=== PATIENT | female | born 1985 | race Caucasian/White ===

== ENCOUNTER 2016-07-05 18:08 | Inpatient (IN) | payer MEDICARE ==
[2016-07-05] MEDS ORDERED: Sodium Chloride 0.9% 1000 ML 1,000 ML ONE (18:42)
[2016-07-05] MEDS ORDERED: TYLENOL EXTRA STRENGTH 500 MG ONE (18:42)
[2016-07-05] MEDS ORDERED: Sodium Chloride 0.9% 1000 ML 1,000 ML IV SCH ×2 (18:45→22:45)
[2016-07-05] MEDS ORDERED: TYLENOL EXTRA STRENGTH 500 MG PO PRN (18:46)
[2016-07-05 18:50] LABS: Bacteria FEW /HPF (NEGATIVE); COMPLETE URINE MICROSCOPIC? YES; Collection Type CLEAN CATCH; Epithelial Cells FEW /HPF (FEW); Mean Cell Volume 72.3 fl (78-100); Mean Corpuscular Hemoglobin 24.8 pg (26-32); Mean Platelet Volume 11.1 fl (6-9.5); Mucus MODERATE /HPF (NEGATIVE); Platelet Count 433 K/mm3 (150-450); Red Blood Count 5.09 M/mm3 (4.1-5.4); Red Cell Distribution Width 13.5 % (11.5-14.0); White Blood Count 18.9 K/mm3 (4.0-10.5)
[2016-07-05 19:14] LABS: ANISOCYTOSIS 1+; ATYPICAL LYMPHS 3 %; Eosinophil 2 % (0.00-3.0); Microcytosis 1+; Platelet Estimate NORMAL (NORMAL); Total Cells Counted 100
[2016-07-05 19:17] LABS: ALBUMIN 2.5 g/dL (3.4-5.0); ANION GAP 16.6 MEQ/L (5-15); BILIRUBIN,TOTAL 0.2 mg/dL (0.2-1.0); Carbon Dioxide 21.4 mEq/L (21-32); Potassium 4.2 mEq/L (3.5-5.1); Total Protein 6.8 gm/dL (6.4-8.2)
--- NOTE | 2016-07-05 19:42 | ERPHSYRPT ---
- History of Present Illness Time Seen by Provider: 07/05/16 19:33 Source: patient Exam Limitations: no limitations Patient Subjective Stated Complaint: PT REPORTS NONPRODUCTIVE COUGH BEGINNING 2 DAYS AGO-PROGRESSIVELY [id number] OVER BODY ACHES-DENIES N/V/D Triage Nursing Assessment: PT PALE WARM ET DRY-HARSH DRY COUGH NOTED THROUGHOUT TRIAGE-LUNGS CLEAR-RESP NONLABORED Physician History: Pt with dry cough along with SOB, weakness, myalgia, fever and chills for 2 days. States worse yesterday with symptoms. Denies any N/V/D, abdominal pain, or urinary symptoms. Timing/Duration: day(s) (2) Activities at Onset: none Severity of Dyspnea-Max: moderate Severity of Dyspnea-Current: moderate Possible Cause: occasional episodes Modifying Factors: Improves With: coughing (worsen), rest (improve) Associated Symptoms: cough, edema, fever, loss of appetite, lightheadedness, dizziness, heaviness, heart racing, lightheadedness, leg swelling, No chest pain /discomfort, No calf pain International travel in last 2 weeks: No Allergies/Adverse Reactions: latex Allergy (Intermediate, Verified 07/05/16 18:20) Iodinated Contrast Media - Oral and [Iodinated Contrast Media - IV Dye] Allergy (Verified 07/05/16 18:20) morphine Allergy (Verified 07/05/16 18:20) Home Medications: Levetiracetam [Keppra] 750 mg PO BID 02/15/14 [History] Losartan Potassium 100 mg PO DAILY 02/15/14 [History] Docusate Sodium 100 mg [Colace 100 MG] 100 mg PO BID 08/30/15 [History] Fluticasone Propionate [Flonase NASAL] 16 gm NS DAILY 08/30/15 [History] Insulin Aspart [Novolog Flexpen] 10 unit SQ TIDAC 08/30/15 [History] Prochlorperazine Maleate 5 mg* [Compazine 5 MG] 5 mg PO Q6HPRN PRN 08/30/15 [ History] Sumatriptan Succinate 25 mg [Imitrex 25 MG] 25 mg SQ Q8H PRN PRN 08/30/15 [ History] Topiramate [Topamax] 50 mg PO BID 08/30/15 [History] Aspirin 81 gm Chew [Baby Aspirin 81 mg Chew] 81 mg PO DAILY 03/17/16 [ History] Atorvastatin Calcium 40 mg PO DAILY 03/17/16 [History] Hydrochlorothiazide 25 mg [hydroDIURIL 25 MG] 25 mg PO DAILY 03/17/16 [ History] Insulin Glargine [Lantus Insulin] 20 units SQ BID 03/17/16 [History] Metoprolol Tartrate 25 mg [Lopressor 25MG Tab] 25 mg PO DAILY 03/17/16 [ History] Mirtazapine 30 mg [Remeron 30 mg] 30 mg PO DAILY 03/17/16 [History] Olanzapine [Zyprexa] 5 mg PO DAILY PRN 03/17/16 [History] PANTOPRAZOLE 40 mg Tablet [Protonix 40MG Tablet] 40 mg PO DAILY 03/17/16 [ History] Warfarin Sodium 5 mg [Coumadin 5 MG] 5 mg PO UD 07/05/16 [History] Hx Tetanus, Diphtheria Vaccination/Date Given: Yes Hx Influenza Vaccination/Date Given: Yes Hx Pneumococcal Vaccination/Date Given: No Immunizations Up to Date: Yes - Review of Systems Constitutional: Fever, Chills, Malaise, Weakness Eyes: No Symptoms Ears, Nose, & Throat: No Symptoms, Nose Congestion, Throat Pain, Painful Swallowing Respiratory: Cough, Dyspnea Cardiac: Edema, Palpitations, No Chest Pain, No Syncope Abdominal/Gastrointestinal: No Abdominal Pain, No Nausea, No Vomiting, No Diarrhea Genitourinary Symptoms: No Dysuria Musculoskeletal: Back Pain, Neck Pain, Myalgias Skin: No Rash Neurological: No Dizziness, No Focal Weakness, No Sensory Changes Psychological: No Symptoms Endocrine: No Symptoms Hematologic/Lymphatic: Easy Bruising All Other Systems: Reviewed and Negative - Past Medical History Pertinent Past Medical History: Yes Neurological History: Stroke (Jan 2016) ENT History: No Pertinent History Cardiac History: High Cholesterol, Hypertension Respiratory History: CHF, Pulmonary Embolism Endocrine Medical History: Diabetes Type I Musculoskeletal History: No Pertinent History GI Medical History: No Pertinent History History: No Pertinent History Psycho-Social History: Anxiety, Depression Female Reproductive Disorders: No Pertinent History Other Medical History: lupus-clotting disorder - Past Surgical History Past Surgical History: Yes Neuro Surgical History: No Pertinent History Cardiac: No Pertinent History Respiratory: No Pertinent History Gastrointestinal: No Pertinent History Genitourinary: No Pertinent History Musculoskeletal: No Pertinent History Female Surgical History: Tubal Ligation Other Surgical History: esophagus stretched. ALL INFORMATION OBTAINED FORM ER REPORT - Social History Smoking Status: Never smoker Exposure to second hand smoke: No Drug Use: none Patient Lives Alone: No - Female History Hx Last Menstrual Period: CURRENT - Nursing Vital Signs Nursing Vital Signs: Initial Vital Signs Temperature 100.9 F Temperature Source Oral Pulse Rate 100 Respiratory Rate 16 Blood Pressure [] 170/99 Pain Intensity 2 - Physical Exam General Appearance: mild distress Eye Exam: PERRL/EOMI Ears, Nose, Throat Exam: pharyngeal erythema Neck Exam: normal inspection, supple Respiratory Exam: diminished breath sounds, rhonchi Cardiovascular/Chest Exam: normal heart sounds, tachycardia Abdominal/Gastrointestinal Exam: soft, No tenderness, No distention, No mass Extremity Exam: pedal edema Peripheral Pulses Exam: dorsalis-pedis (R): 2+, dorsalis-pedis (L): 2+ Neurologic Exam: alert, oriented x 3, cooperative, linoleum printer II-XII nml as tested, sensation nml, No motor deficits Skin Exam: normal color, warm, No dry Lymphatic Exam: No adenopathy SpO2 Interpretation: normal SpO2: 95 Oxygen Delivery: Room Air - Course Nursing assessment & vital signs reviewed: Yes EKG Interpreted by Me: RATE (101), Sinus Tach, NORMAL AXIS, NORMAL QRS, Non- specific ST Changes - Radiology Exams Chest X-ray Interpretation: Teleradiologist Report, Infiltrates (RML) Ordered Tests: Active Orders 24 hr Category Date Time Status Accucheck STAT Care 07/05/16 18:39 Active EKG-ER Only STAT Care 07/05/16 20:10 Active IV Insertion STAT Care 07/05/16 18:39 Active Pulse Oximetry (ED) STAT Care 07/05/16 18:39 Active CHEST 2 VIEWS (PA AND LAT) Stat Exams 07/05/16 18:40 Completed BLOOD CULTURE Stat Lab 07/05/16 20:22 Received BNP [NT PRO BNP] Stat Lab 07/05/16 18:30 Completed CBC W DIFF Stat Lab 07/05/16 18:30 Completed CMP Stat Lab 07/05/16 18:30 Completed HCG QUALITATIVE,SERUM Stat Lab 07/05/16 18:30 Completed Lactic Acid Urgent Lab 07/05/16 18:39 Completed Lactic Acid Urgent Lab 07/05/16 19:49 Completed Manual Differential NC Stat Lab 07/05/16 18:30 Completed PT INR [PROTIME WITH INR] Stat Lab 07/05/16 16:30 Completed STREP SCREEN-BETA A Stat Lab 07/05/16 20:23 Completed UA W/ MICROSCOPIC Stat Lab 07/05/16 18:30 Completed Medication Summary Generic Name Dose Route Start Last Admin Trade Name Jason PRN Reason Stop Dose Admin Acetaminophen 1,000 mg 07/05/16 18:46 07/05/16 18:47 Tylenol Extra Strength 500 Mg PO 08/04/16 18:45 1,000 mg Q4H PRN PRN Administration HEADACHE Sodium Chloride 1,000 mls @ 100 mls/hr 07/05/16 18:45 07/05/16 18:47 Sodium Chloride 0.9% 1000 Ml IV 08/04/16 18:44 100 mls/hr .Q10H NEIL Administration Azithromycin 250 mls @ 125 mls/hr 07/05/16 21:14 07/05/16 21:56 Zithromax 500 Mg/ 250 Ml Nacl Premix IV 07/05/16 23:13 125 mls/hr STAT ONE Administration Discontinued Medications Generic Name Dose Route Start Last Admin Trade Name Jason PRN Reason Stop Dose Admin Acetaminophen Confirm 07/05/16 18:42 Tylenol Extra Strength 500 Mg Administered 07/05/16 18:43 Dose 1,000 mg .ROUTE .STK-MED ONE Guaifenesin/Codeine Phosphate 10 ml 07/05/16 20:01 07/05/16 20:09 Robitussin Ac Syrup Unit Dose Cup PO 07/05/16 20:02 10 ml STAT ONE Administration Guaifenesin/Codeine Phosphate Confirm 07/05/16 20:08 Robitussin Ac Syrup Unit Dose Cup Administered 07/05/16 20:09 Dose 10 ml .ROUTE .STK-MED ONE Sodium Chloride Confirm 07/05/16 18:42 Sodium Chloride 0.9% 1000 Ml Administered 07/05/16 18:43 Dose 1,000 mls @ ud .ROUTE .STK-MED ONE Ceftriaxone Sodium/Dextrose 50 mls @ 100 mls/hr 07/05/16 21:14 07/05/16 21:20 Rocephin 1 Gm-D5w 50 Ml Bag IV 07/05/16 21:43 100 mls/hr STAT ONE Administration Azithromycin Confirm 07/05/16 21:16 Zithromax 500 Mg/ 250 Ml Nacl Premix Administered 07/05/16 21:17 Dose 250 mls @ ud IV .STK-MED ONE Ceftriaxone Sodium/Dextrose Confirm 07/05/16 21:16 Rocephin 1 Gm-D5w 50 Ml Bag Administered 07/05/16 21:17 Dose 50 mls @ ud IV .STK-MED ONE Ibuprofen 600 mg 07/05/16 19:50 07/05/16 20:04 Motrin 600 Mg PO 07/05/16 19:51 600 mg STAT STA Administration Ibuprofen Confirm 07/05/16 20:03 Motrin 600 Mg Administered 07/05/16 20:04 Dose 600 mg .ROUTE .STK-MED ONE Lab/Rad Data: Laboratory Result Diagrams 07/05/16 18:30 07/05/16 18:30 Laboratory Results 07/05/16 07/05/16 07/05/16 Range/Units 20:23 19:49 18:45 WBC (4.0-10.5) K/mm3 RBC (4.1-5.4) M/mm3 Hgb (12.0-16.0) gm/dl Hct (35-47) % MCV (78-100) fl MCH (26-32) pg MCHC (32-36) g/dl RDW (11.5-14.0) % Plt Count (150-450) K/mm3 MPV (6-9.5) fl Segmented Neutrophils (36.0-66.0) % Lymphocytes (Manual) (24-44) % Monocytes (Manual) (0.0-12.0) % Eosinophils (Manual) (0.00-3.0) % Differential Comment Atypical Lymphocytes % Platelet Estimate (NORMAL) Anisocytosis Microcytosis INR (0.8-3.0) Sodium (136-145) mEq/L Potassium (3.5-5.1) mEq/L Chloride (98-107) mEq/L Carbon Dioxide (21-32) mEq/L Anion Gap (5-15) MEQ/L BUN (9-20) mg/dL Creatinine (0.55-1.30) mg/dl Estimated GFR ML/MIN Glucose (70-110) MG/DL Lactic Acid 0.6 (0.4-2.0) Calcium (8.5-10.1) mg/dL Total Bilirubin (0.2-1.0) mg/dL AST (15-37) U/L ALT (12-78) U/L Alkaline Phosphatase (46-116) U/L NT-Pro-B Natriuret Pep (0-125) pg/ml Serum Total Protein (6.4-8.2) gm/dL Albumin (3.4-5.0) g/dL Serum , Qual (Negative) Ur Collection Type Urine Color (YELLOW) Urine Appearance (CLEAR) Urine pH (5-6) Ur Specific [place] (1.005-1.025) Urine Protein (Negative) Urine Glucose (UA) (NEGATIVE) mg/dL Urine Ketones (NEGATIVE) Urine Nitrite (NEGATIVE) Urine Bilirubin (NEGATIVE) Urine Urobilinogen (0-1) mg/dL Urine WBC (Auto) (NEGATIVE) Urine RBC (Auto) (0-5) Vamshi/ul Urine Microscopic RBC (0-2) /HPF Ur Epithelial Cells (FEW) /HPF Urine Bacteria (NEGATIVE) /HPF Urine Mucus (NEGATIVE) /HPF Streptococcus Screen POSITIVE (Negative) Resp Infection Panel POSITIVE (Negative) Specimen Received 07/05/16 07/05/16 07/05/16 Range/Units 18:39 18:30 18:30 WBC (4.0-10.5) K/mm3 RBC (4.1-5.4) M/mm3 Hgb (12.0-16.0) gm/dl Hct (35-47) % MCV (78-100) fl MCH (26-32) pg MCHC (32-36) g/dl RDW (11.5-14.0) % Plt Count (150-450) K/mm3 MPV (6-9.5) fl Segmented Neutrophils (36.0-66.0) % Lymphocytes (Manual) (24-44) % Monocytes (Manual) (0.0-12.0) % Eosinophils (Manual) (0.00-3.0) % Differential Comment Atypical Lymphocytes % Platelet Estimate (NORMAL) Anisocytosis Microcytosis INR (0.8-3.0) Sodium (136-145) mEq/L Potassium (3.5-5.1) mEq/L Chloride (98-107) mEq/L Carbon Dioxide (21-32) mEq/L Anion Gap (5-15) MEQ/L BUN (9-20) mg/dL Creatinine (0.55-1.30) mg/dl Estimated GFR ML/MIN Glucose (70-110) MG/DL Lactic Acid 1.1 (0.4-2.0) Calcium (8.5-10.1) mg/dL Total Bilirubin (0.2-1.0) mg/dL AST (15-37) U/L ALT (12-78) U/L Alkaline Phosphatase (46-116) U/L NT-Pro-B Natriuret Pep 1808 H (0-125) pg/ml Serum Total Protein (6.4-8.2) gm/dL Albumin (3.4-5.0) g/dL Serum , Qual (Negative) Ur Collection Type CLEAN CATCH Urine Color YELLOW (YELLOW) Urine Appearance CLEAR (CLEAR) Urine pH 6.0 (5-6) Ur Specific [place] 1.020 (1.005-1.025) Urine Protein >=300 (Negative) Urine Glucose (UA) 500 (NEGATIVE) mg/dL Urine Ketones NEGATIVE (NEGATIVE) Urine Nitrite NEGATIVE (NEGATIVE) Urine Bilirubin NEGATIVE (NEGATIVE) Urine Urobilinogen 0.2 (0-1) mg/dL Urine WBC (Auto) NEGATIVE (NEGATIVE) Urine RBC (Auto) MODERATE (0-5) Vamshi/ul Urine Microscopic RBC 10-15 (0-2) /HPF Ur Epithelial Cells FEW (FEW) /HPF Urine Bacteria FEW (NEGATIVE) /HPF Urine Mucus MODERATE (NEGATIVE) /HPF Streptococcus Screen (Negative) Resp Infection Panel (Negative) Specimen Received 07/05/16:1830 07/05/16 07/05/16 07/05/16 Range/Units 18:30 18:30 18:30 WBC 18.9 H (4.0-10.5) K/mm3 RBC 5.09 (4.1-5.4) M/mm3 Hgb 12.6 (12.0-16.0) gm/dl Hct 36.8 (35-47) % MCV 72.3 L (78-100) fl MCH 24.8 L (26-32) pg MCHC 34.2 (32-36) g/dl RDW 13.5 (11.5-14.0) % Plt Count 433 (150-450) K/mm3 MPV 11.1 H (6-9.5) fl Segmented Neutrophils 80 H (36.0-66.0) % Lymphocytes (Manual) 8 L (24-44) % Monocytes (Manual) 7 (0.0-12.0) % Eosinophils (Manual) 2 (0.00-3.0) % Differential Comment ABNORMAL Atypical Lymphocytes 3 % Platelet Estimate NORMAL (NORMAL) Anisocytosis 1+ Microcytosis 1+ INR (0.8-3.0) Sodium 135 L (136-145) mEq/L Potassium 4.2 (3.5-5.1) mEq/L Chloride 101 (98-107) mEq/L Carbon Dioxide 21.4 (21-32) mEq/L Anion Gap 16.6 H (5-15) MEQ/L BUN 25 H (9-20) mg/dL Creatinine 1.52 H (0.55-1.30) mg/dl Estimated GFR 42 ML/MIN Glucose 156 H (70-110) MG/DL Lactic Acid (0.4-2.0) Calcium 8.4 L (8.5-10.1) mg/dL Total Bilirubin 0.2 (0.2-1.0) mg/dL AST 20 (15-37) U/L ALT 10 L (12-78) U/L Alkaline Phosphatase 109 (46-116) U/L NT-Pro-B Natriuret Pep (0-125) pg/ml Serum Total Protein 6.8 (6.4-8.2) gm/dL Albumin 2.5 L (3.4-5.0) g/dL Serum , Qual NEGATIVE (Negative) Ur Collection Type Urine Color (YELLOW) Urine Appearance (CLEAR) Urine pH (5-6) Ur Specific [place] (1.005-1.025) Urine Protein (Negative) Urine Glucose (UA) (NEGATIVE) mg/dL Urine Ketones (NEGATIVE) Urine Nitrite (NEGATIVE) Urine Bilirubin (NEGATIVE) Urine Urobilinogen (0-1) mg/dL Urine WBC (Auto) (NEGATIVE) Urine RBC (Auto) (0-5) Vamshi/ul Urine Microscopic RBC (0-2) /HPF Ur Epithelial Cells (FEW) /HPF Urine Bacteria (NEGATIVE) /HPF Urine Mucus (NEGATIVE) /HPF Streptococcus Screen (Negative) Resp Infection Panel (Negative) Specimen Received 07/05/16 Range/Units 16:30 WBC (4.0-10.5) K/mm3 RBC (4.1-5.4) M/mm3 Hgb (12.0-16.0) gm/dl Hct (35-47) % MCV (78-100) fl MCH (26-32) pg MCHC (32-36) g/dl RDW (11.5-14.0) % Plt Count (150-450) K/mm3 MPV (6-9.5) fl Segmented Neutrophils (36.0-66.0) % Lymphocytes (Manual) (24-44) % Monocytes (Manual) (0.0-12.0) % Eosinophils (Manual) (0.00-3.0) % Differential Comment Atypical Lymphocytes % Platelet Estimate (NORMAL) Anisocytosis Microcytosis INR 2.29 (0.8-3.0) Sodium (136-145) mEq/L Potassium (3.5-5.1) mEq/L Chloride (98-107) mEq/L Carbon Dioxide (21-32) mEq/L Anion Gap (5-15) MEQ/L BUN (9-20) mg/dL Creatinine (0.55-1.30) mg/dl Estimated GFR ML/MIN Glucose (70-110) MG/DL Lactic Acid (0.4-2.0) Calcium (8.5-10.1) mg/dL Total Bilirubin (0.2-1.0) mg/dL AST (15-37) U/L ALT (12-78) U/L Alkaline Phosphatase (46-116) U/L NT-Pro-B Natriuret Pep (0-125) pg/ml Serum Total Protein (6.4-8.2) gm/dL Albumin (3.4-5.0) g/dL Serum , Qual (Negative) Ur Collection Type Urine Color (YELLOW) Urine Appearance (CLEAR) Urine pH (5-6) Ur Specific [place] (1.005-1.025) Urine Protein (Negative) Urine Glucose (UA) (NEGATIVE) mg/dL Urine Ketones (NEGATIVE) Urine Nitrite (NEGATIVE) Urine Bilirubin (NEGATIVE) Urine Urobilinogen (0-1) mg/dL Urine WBC (Auto) (NEGATIVE) Urine RBC (Auto) (0-5) Vamshi/ul Urine Microscopic RBC (0-2) /HPF Ur Epithelial Cells (FEW) /HPF Urine Bacteria (NEGATIVE) /HPF Urine Mucus (NEGATIVE) /HPF Streptococcus Screen (Negative) Resp Infection Panel (Negative) Specimen Received - Progress Progress: improved Air Movement: fair Progress Note: 07/05/16 21:04 patient was given IV fluids along with Robitussin-AC. Patient was also given Tylenol and Motrin for fever which did seem to improve her symptoms. We will also give her IV antibiotics for her pneumonia. Dr. Payne was notified and agreed that patient should be admitted. Further care will be per Dr. Payne. Blood Culture(s) Obtained: Yes Antibiotics given: Yes Discussed with Dr.: Payne Counseled pt/family regarding: lab results, diagnosis, rad results - Departure Time of Disposition: 21:07 Departure Disposition: In-patient Admission Clinical Impression: Pneumonia, Strep pharyngitis Condition: Stable Critical Care Time: No Referrals: GREGORY PAYNE [Primary Care Provider] -
[2016-07-05] MEDS ORDERED: MOTRIN 600 MG PO STA (19:50)
[2016-07-05] MEDS ORDERED: Robitussin AC Syrup Unit Dose Cup PO ONE (20:01)
[2016-07-05] MEDS ORDERED: MOTRIN 600 MG ONE (20:03)
[2016-07-05 20:08] LABS: INR 2.29 (0.8-3.0)
[2016-07-05] MEDS ORDERED: Robitussin AC Syrup Unit Dose Cup ONE (20:08)
--- NOTE | 2016-07-05 20:48 | XRAY ---
Indication: Cough. Comparison: None PA/lateral chest demonstrates right middle lobe infiltrate/atelectasis. Left lung clear. Heart is not enlarged. Bony thorax intact. Impression: Right middle lobe infiltrate/atelectasis. Correlate clinically. Comment: Preliminary electronic report was generated for the ordering clinician at 2015 hrs. on July 05, 2016.
[2016-07-05] MEDS ORDERED: ROCEPHIN 1 Gm-D5w 50 ml Bag** 50 ML IV ONE ×2 (21:14→21:16)
[2016-07-05] MEDS ORDERED: Zithromax 500 MG/ 250 ML NaCl Premix 250 ML IV ONE ×2 (21:14→21:16)
[2016-07-05] MEDS ORDERED: TYLENOL 325 MG PO PRN (22:48)
[2016-07-05] MEDS ORDERED: Phenergan 25 MG INJ IV PRN (22:54)
[2016-07-05] MEDS ORDERED: Robitussin 100 MG/5 ML PO PRN (22:55)
[2016-07-05] MEDS ORDERED: Topamax 25 MG PO SCH (23:45)
[2016-07-05] MEDS ORDERED: Compazine 5 MG PO PRN (23:50)
[2016-07-05] MEDS ORDERED: Topamax 100 MG ONE (23:58)
[2016-07-06] MEDS: Colace 100 MG PO SCH ×3 (00:36→22:14)
[2016-07-06] MEDS: KEPPRA 500 MG PO SCH ×3 (00:36→22:13)
[2016-07-06] MEDS: NORCO 5/325 MG PO PRN ×3 (00:39→19:49)
[2016-07-06] MEDS: LIORESAL 10 MG PO SCH ×4 (00:39→22:14)
[2016-07-06] MEDS: Lantus Insulin SQ SCH ×3 (00:39→23:00)
[2016-07-06 05:37] LABS: Mean Cell Volume 73.9 fl (78-100); Mean Platelet Volume 10.7 fl (6-9.5); Platelet Count 378 K/mm3 (150-450); Red Blood Count 4.64 M/mm3 (4.1-5.4); Red Cell Distribution Width 13.6 % (11.5-14.0)
[2016-07-06 05:39] LABS: Mean Corpuscular Hemoglobin 24.3 pg (26-32)
[2016-07-06 05:49] LABS: INR 2.28 (0.8-3.0); PROTIME 24.9 SECONDS (9.95-12.35)
[2016-07-06 05:57] LABS: ANION GAP 11.4 MEQ/L (5-15); Carbon Dioxide 26.2 mEq/L (21-32); Potassium 3.5 mEq/L (3.5-5.1)
[2016-07-06] MEDS: DUONEB 0.5-3 MG/3 ml Neb IH PRN (06:07)
[2016-07-06 07:02] LABS: Platelet Estimate NORMAL (NORMAL); Total Cells Counted 100
[2016-07-06] MEDS ORDERED: REMERON 30 MG PO SCH (10:00)
[2016-07-06] MEDS ORDERED: LIPITOR 40MG PO SCH (10:00)
[2016-07-06] MEDS ORDERED: Lopressor 25MG Tab PO SCH (10:00)
[2016-07-06] MEDS ORDERED: BABY ASPIRIN 81 MG CHEW PO SCH (10:00)
[2016-07-06] MEDS: NovoLOG Insulin SQ SCH ×3 (10:09→16:52)
[2016-07-06] MEDS: Cozaar 50 MG PO SCH (10:10)
[2016-07-06] MEDS: Flonase NASAL NS SCH (10:11)
[2016-07-06] MEDS: ECOTRIN 81 MG PO SCH (10:11)
[2016-07-06] MEDS: hydroDIURIL 25 MG PO SCH (10:12)
[2016-07-06] MEDS: Protonix 40MG Tablet PO SCH (10:14)
[2016-07-06] MEDS: Topamax 100 MG PO SCH ×2 (10:14→22:13)
[2016-07-06] MEDS: zyPREXA 5MG TABLET PO SCH (10:16)
[2016-07-06] MEDS: ZOCOR 20MG PO SCH (10:16)
[2016-07-06] MEDS ORDERED: PHARMACY DOSING REQUEST MC ONE (10:52)
[2016-07-06] MEDS ORDERED: NON-FORMULARY ITEM (Insulin Aspart [Novolog Flexpen] 10 UNIT) SQ SCH (11:30)
[2016-07-06] MEDS: Zosyn 3.375GM/100 Ml D5W 100 ML IV SCH ×3 (11:32→23:41)
[2016-07-06] MEDS: Coumadin 2 MG PO SCH (18:18)
[2016-07-06] MEDS ORDERED: Zithromax 500 MG/ 250 ML NaCl Premix 250 ML IV SCH (22:00)
[2016-07-06] MEDS ORDERED: ROCEPHIN 1 Gm-D5w 50 ml Bag** 50 ML IV SCH (22:00)
[2016-07-07] MEDS ORDERED: Apresoline 25 MG TABLET PO ONE (04:48)
[2016-07-07 05:49] LABS: Mean Cell Volume 75.1 fl (78-100); Mean Corpuscular Hemoglobin 24.5 pg (26-32); Platelet Count 395 K/mm3 (150-450); Red Blood Count 4.57 M/mm3 (4.1-5.4); Red Cell Distribution Width 13.9 % (11.5-14.0); White Blood Count 12.4 K/mm3 (4.0-10.5)
[2016-07-07 06:15] LABS: ANION GAP 13.9 MEQ/L (5-15); Carbon Dioxide 24.6 mEq/L (21-32); Potassium 4.1 mEq/L (3.5-5.1)
[2016-07-07 06:17] LABS: INR 2.27 (0.8-3.0); PROTIME 24.8 SECONDS (9.95-12.35)
[2016-07-07] MEDS: Zosyn 3.375GM/100 Ml D5W 100 ML IV SCH (06:20)
[2016-07-07] MEDS: DUONEB 0.5-3 MG/3 ml Neb IH PRN (07:09)
[2016-07-07 07:10] LABS: BAND 2 % (0.0-2.0); Eosinophil 4 % (0.00-3.0); Platelet Estimate NORMAL (NORMAL); Total Cells Counted 100
--- NOTE | 2016-07-07 07:59 | HP ---
HISTORY OF PRESENT ILLNESS: This is a 31 year-old lady who presented to the emergency department yesterday. She states that two days ago she started having problems breathing. She reports her son and has had bronchitis and she has been exposed to them. She had a cough and nasal congestion. She had a low grade fever two days ago and then a fever yesterday that was up to 102.6F when she was in the emergency department. She reports she just did not seem to be getting much better. She has a complex medical history with multiple medical problems despite her young age. REVIEW OF SYSTEMS: She denies any chest pain. No abdominal pain. No diarrhea. No rashes. She had some lower extremity edema. She reports some dry heaves with coughing otherwise no nausea or vomiting. She reports her cough has been nonproductive and has not seemed to get much better since being here in the hospital. PAST MEDICAL HISTORY: Congestive heart failure which she sees a doctor at [facility]. However she cannot remember the name. The next appointment is 08/29/2016. History of chronic pain and she has an upcoming appointment with pain management. History of stroke and seizure disorder which she sees Dr. Ramiro Smith at [facility]. History of lupus anticoagulant, diabetes type 1 diagnosed when she was 8 years old that she sees Dr. Freeman at for. Migraine, fibromyalgia, history of tachycardia, neuropathy. PAST SURGICAL HISTORY: She had her esophagus dilated in 2009. Tubal ligation in 2005. MEDICATIONS: Aspirin 81 mg p.o. daily, Atorvastatin 40 mg daily, Baclofen 10 mg t.i.d., docusate 100 mg b.i.d., fluticasone 16 gm two sprays in each nostril daily, hydrochlorothiazide 25 mg p.o. daily, hydrocodone with acetaminophen 5/325 mg 1 tablet p.o. every four hours as needed, NovoLog 10 units subcutaneously t.i.d., Lantus 20 units subcutaneously t.i.d., Lantus 20 units subcutaneously b.i.d., Keppra 750 mg p.o. t.i.d., losartan 100 mg p.o. daily, metoprolol tartrate 25 mg p.o. daily, Remeron 30 mg p.o. daily, Zyprexa 5 mg p.o. daily, pantoprazole 40 mg p.o. daily, Compazine 5 mg p.o. every six hours as needed for nausea, Sumatriptan 25 mg p.o. every 8 hours as needed, Topamax 50 mg p.o. b.i.d., warfarin 5 mg on Thursday, Thursday and Thursday and 4 mg all other days. ALLERGIES: LATEX, IODINE, IODINATED CONTRAST BOTH IV AND ORAL, MORPHINE. SOCIAL HISTORY: She does not smoke. No alcohol. No illicit drugs. She is and lives at home with her and one child. FAMILY HISTORY: Her mother has hypertension. Her father has diabetes. PHYSICAL EXAMINATION: VITAL SIGNS: Temperature current 98.2F, temperature max 102.5F, heart rate 80 to 119 currently 80, respiratory rate 16 to 24 currently 20, blood pressure 140 to 188 over 80 to 112 currently 140/80. Oxygen saturation 93 to 95% on room air. GENERAL: The patient is a pleasant lady lying in bed in no acute distress. CVS: She has a regular rate and rhythm. No murmurs, gallops or rubs are appreciated. CHEST: There is no wheezing. She has equal breath sounds. She has crackles over the right mid lung field. No retractions. No accessory muscle use. ABDOMEN: Soft, nontender, nondistended with normal bowel sounds. EXTREMITIES: +1 edema bilaterally. No clubbing or cyanosis. HEENT: She has some nasal congestion. LABORATORY DATA AND TESTS: Her white blood cell count was 18,900 on admission with 80% neutrophils, 8% lymphocytes, 7% monocytes. Repeat white blood cell count this morning 18,000 with 80% neutrophils, 19% lymphocytes. International normalized ratio 2.28. Sodium 135 on admission and now 140. Creatinine was 1.52 on admission and now 1.61. The BNP was 1,808. UA was greater than 300 protein. She was positive for respiratory syncytial virus and positive for strep. UA few bacteria, 10 to 15 red blood cells. She has blood cultures in lab. Chest x-ray was read as middle lobe infiltrate/atelectasis. Please see the radiologist full dictation. ASSESSMENT AND PLAN: 1) Right middle lobe pneumonia. She was initially started on ceftriaxone and azithromycin although in the past years she has had multiple hospitalization. I am going to change this to Zosyn and ask the pharmacy to dose due to her renal insufficiency. 2) Respiratory syncytial virus. This is positive and will continue with supportive treatment for this. She has DuoNeb ordered if needed and is in contact isolation. 3) History of congestive heart failure currently stable. Continue home medications. 4) Diabetes mellitus type 1. She was restarted on her home dose of insulin and will continue to monitor her blood glucose closely. 5) History of seizure disorder. Will continue with her current home medications. 6) History of CVA. Will continue with warfarin, check daily international normalized ratio since she is on antibiotic and continue other home medications. 7) Hypertension. Her blood pressure has improved during her hospitalization will continue with her home antihypertensive.
[2016-07-07] MEDS: NovoLOG Insulin SQ SCH ×4 (08:08→16:47)
--- NOTE | 2016-07-07 08:34 | PCM.NOTE ---
Date and Time: 07/07/16828 Subjective Assessment: I was called early this AM for patient's blood pressure which was high (218/119 ) and the nurse said the patient told her that she couldn't see but then this resolved and she was able to see. Please see the nurses note which I reviewed. The nurse noted a little weakness in her left leg, but she has underlying weakness on the left side from an old stroke. Her blood pressure is better this AM but the patient is confused when I saw her today. She told me she could not tell me where she was, what state she was in or what her name was. Her day shift nurse notes that she could tell her her name but did not know the year. - Review of Systems Constitutional: Other (cough) Eyes: Other (transient trouble seeing) Ears, Nose, & Throat: No Symptoms Respiratory: Cough Cardiac: No Symptoms Abdominal/Gastrointestinal: No Symptoms Genitourinary Symptoms: No Symptoms Musculoskeletal: No Symptoms Neurological: No Focal Weakness, No Irritability, No Paralysis, No Speech Changes Psychological: Memory Loss Objective Exam General Appearance: no apparent distress Neurologic Exam: alert, cooperative, other (seems confused at times), No oriented x 3 Skin Exam: normal color, warm, dry, No rash Respiratory Exam: normal breath sounds, other (+ cough; rhonchi and crackles at the bases of her lungs bilat), No respiratory distress, No airway intact, No accessory muscle use Gastrointestinal/Abdomen Exam: soft, normal bowel sounds, No tenderness, No distention, No mass, No guarding Extremity Exam: other (no c/c/e) OBJECTIVE DATA Vital Signs: Vital Signs - 24 hr Temp Pulse Resp BP Pulse Ox 07/07/16 07:38 98.5 F 101 H 20 183/88 98 07/07/16 07:12 85 20 98 07/07/16 06:00 22 07/07/16 02:00 98.7 F 76 22 136/76 96 07/06/16 22:00 20 07/06/16 20:00 98.6 F 79 20 136/80 95 07/06/16 19:13 75 20 93 L 07/06/16 18:00 20 07/06/16 17:00 98.5 F 74 20 142/80 94 L 07/06/16 14:00 22 07/06/16 11:13 98.6 F 07/06/16 10:00 20 Pain Assessment - Last Documented Pain Intensity 4 [facility] Intake and Output: Intake & Output 07/05/16 07/06/16 07/07/16 07/08/16 06:59 06:59 06:59 06:59 Intake Total 450 420 Output Total 400 1300 Balance 50 -880 Weight 70.76 kg 70.108 kg 73.936 kg Lab Results: Accuchecks Date 07/06/16 Date 07/06/16 Date 07/06/16 Time 22:00 Time 16:30 Time 11:45 Accucheck Value: 121 Accucheck Value: 83 Accucheck Value: 143 Lab Results-Last 24 Hours 07/07/16 07/07/16 07/07/16 Range/Units 05:35 05:35 05:35 WBC 12.4 H (4.0-10.5) K/mm3 RBC 4.57 (4.1-5.4) M/mm3 Hgb 11.2 L (12.0-16.0) gm/dl Hct 34.3 L (35-47) % MCV 75.1 L (78-100) fl MCH 24.5 L (26-32) pg MCHC 32.7 (32-36) g/dl RDW 13.9 (11.5-14.0) % Plt Count 395 (150-450) K/mm3 MPV 11.0 H (6-9.5) fl Segmented Neutrophils 71 H (36.0-66.0) % Band Neutrophils 2 (0.0-2.0) % Lymphocytes (Manual) 22 L (24-44) % Monocytes (Manual) 1 (0.0-12.0) % Eosinophils (Manual) 4 H (0.00-3.0) % Differential Comment NORMAL Platelet Estimate NORMAL (NORMAL) INR 2.27 (0.8-3.0) Sodium 143 (136-145) mEq/L Potassium 4.1 (3.5-5.1) mEq/L Chloride 109 H (98-107) mEq/L Carbon Dioxide 24.6 (21-32) mEq/L Anion Gap 13.9 (5-15) MEQ/L BUN 24 H (9-20) mg/dL Creatinine 2.02 H (0.55-1.30) mg/dl Estimated GFR 30 ML/MIN Glucose 132 H (70-110) MG/DL Calcium 8.1 L (8.5-10.1) mg/dL Radiology Exams: Radiology Procedures Category Date Time Status HEAD WITHOUT CONTRAST [CT] Stat Exams 07/07/16 08:20 Ordered Assessment/Plan (1) Pneumonia Current Visit: Yes Status: Acute Qualifiers: Laterality: right Lung location: middle lobe of lung Assessment & Plan: Continue zosyn. She has not needed oxygen since her admission. Her WBC count is improving. Code(s): J18.9 - PNEUMONIA, UNSPECIFIED ORGANISM (2) RSV (respiratory syncytial virus infection) Current Visit: Yes Status: Acute Code(s): B97.4 - RESPIRATORY SYNCYTIAL VIRUS CAUSING DISEASES CLASSD ELSWHR (3) History of CHF (congestive heart failure) Current Visit: Yes Status: Acute Code(s): Z86.79 - PERSONAL HISTORY OF OTHER DISEASES OF THE CIRCULATORY SYSTEM (4) Diabetes type 1, controlled Current Visit: Yes Status: Acute Assessment & Plan: Currently well controlled. Continue current doses of insulin. Code(s): E10.9 - TYPE 1 DIABETES MELLITUS WITHOUT COMPLICATIONS (5) Seizure disorder Current Visit: Yes Status: Acute Assessment & Plan: Continue home antiseizure medications. Code(s): G40.909 - EPILEPSY, UNSP, NOT INTRACTABLE, WITHOUT STATUS EPILEPTICUS (6) History of CVA (cerebrovascular accident) Current Visit: Yes Status: Acute Assessment & Plan: She is on coumadin daily and her INR is therapeutic at 2.2. Code(s): Z86.73 - PRSNL HX OF TIA (TIA), AND CEREB INFRC W/O RESID DEFICITS (7) Hypertension Current Visit: Yes Status: Acute Assessment & Plan: Increase metoprolol from 25 mg daily to 50 mg po bid. Continue losartan 100 mg and HCTZ 25 mg and consult rock wool applicator, Dr. Farnsworth. Code(s): I10 - ESSENTIAL (PRIMARY) HYPERTENSION (8) Chronic kidney disease (CKD) Current Visit: Yes Status: Acute Code(s): N18.9 - CHRONIC KIDNEY DISEASE, UNSPECIFIED (9) Altered mental status Current Visit: Yes Status: Acute Assessment & Plan: Check STAT CT scan of head without contrast. May be due to delirium from being in the hospital. No focal neurological findings. Her blood glucoses have not been low. Code(s): R41.82 - ALTERED MENTAL STATUS, UNSPECIFIED
[2016-07-07] MEDS: Cozaar 50 MG PO SCH (10:08)
[2016-07-07] MEDS: hydroDIURIL 25 MG PO SCH (10:08)
[2016-07-07] MEDS: Colace 100 MG PO SCH ×2 (10:08→22:05)
[2016-07-07] MEDS: Protonix 40MG Tablet PO SCH (10:08)
[2016-07-07] MEDS: zyPREXA 5MG TABLET PO SCH (10:08)
[2016-07-07] MEDS: Lopressor 50 MG PO SCH ×2 (10:09→22:04)
[2016-07-07] MEDS: ZOCOR 20MG PO SCH (10:09)
[2016-07-07] MEDS: ECOTRIN 81 MG PO SCH (10:09)
[2016-07-07] MEDS: Topamax 100 MG PO SCH ×2 (10:09→22:04)
[2016-07-07] MEDS: NORVASC 5 MG PO SCH (10:09)
[2016-07-07] MEDS: KEPPRA 500 MG PO SCH ×2 (10:09→22:05)
[2016-07-07] MEDS: Flonase NASAL NS SCH (10:10)
[2016-07-07] MEDS: Lantus Insulin SQ SCH ×2 (10:10→22:04)
--- NOTE | 2016-07-07 10:31 | XRAY ---
Indication: Altered mental status. Multiple contiguous axial images obtained through the head without contrast. Comparison: 2015 Stable patchy periventricular hypo-attenuations bilaterally. Stable lateral ventricular prominence. Third and fourth ventricles unremarkable. No acute intracranial hemorrhage, abnormal extra-axial fluid collection, or mass effect. Bony calvarium intact. New near-complete opacification of both ethmoid and right maxillary sinuses with lesser minimal mucosal thickening of the remaining paranasal sinuses. There is also new partial opacification of the left mastoid air cells. Impression: 1. Stable patchy periventricular hypoattenuations bilaterally. Findings favored to be multiple sclerosis as seen on MRI brain of August 30, 2015. 2. No new/acute intracranial abnormalities. 3. New pansinusitis. Also new partial opacification of the left mastoid air cells also presumed inflammatory. CT DI 70.87
[2016-07-07] MEDS ORDERED: LASIX 20 MG PO ONE (11:30)
[2016-07-07] MEDS: Zosyn 2.25 GM 2.25 GM in Dextrose 5%/Water IV Soln. 100ML PLUS BAG 100 ML IV SCH ×3 (12:11→23:31)
--- NOTE | 2016-07-07 12:30 | XRAY ---
Indication: CKD. Two-dimensional renal sonogram performed. Comparison: None Both kidneys normal reniform shape with normal color perfusion. The right kidney measures 12.8 x 5.1 x 5.3 cm and the left measures 13.1 x 6.6 x 5.2 cm. 3.3 cm right upper pole cortical simple appearing cyst. No solid renal mass, hydronephrosis, or perinephric fluid. Cortical medullary differentiation maintained without cortical thinning. Images of the urinary bladder unremarkable. Ureteral jets not seen within the allotted exam time. Impression: Right renal cyst. Remaining renal sonogram is negative.
[2016-07-07 13:58] LABS: COMPLETE URINE MICROSCOPIC? YES; Collection Type CLEAN CATCH
[2016-07-07 14:00] LABS: Bacteria FEW /HPF (NEGATIVE); Epithelial Cells RARE /HPF (FEW)
[2016-07-07] MEDS ORDERED: Coumadin 5 MG PO SCH (18:00)
[2016-07-08] MEDS: Sodium Chloride 0.9% 10 ML FLUSH Syringe IV SCH ×3 (05:09→21:59)
[2016-07-08] MEDS: Zosyn 2.25 GM 2.25 GM in Dextrose 5%/Water IV Soln. 100ML PLUS BAG 100 ML IV SCH ×4 (05:09→23:52)
[2016-07-08 05:29] LABS: BASOPHIL % 0.6 % (0.0-0.4); Eosinophil % 7.5 % (0.00-5.0); Granulocytes % 48.4 % (36.0-66.0); Lymphocytes % 35.4 % (24.0-44.0); Mean Cell Volume 75.9 fl (78-100); Mean Corpuscular Hemoglobin 24.7 pg (26-32); Mean Platelet Volume 10.6 fl (6-9.5); Monocytes % 8.1 % (0.0-12.0); Platelet Count 453 K/mm3 (150-450); Red Blood Count 4.49 M/mm3 (4.1-5.4); White Blood Count 8.5 K/mm3 (4.0-10.5)
[2016-07-08 06:00] LABS: ANION GAP 13.8 MEQ/L (5-15); Carbon Dioxide 24.6 mEq/L (21-32); Potassium 3.9 mEq/L (3.5-5.1)
[2016-07-08 06:04] LABS: INR 2.56 (0.8-3.0); PROTIME 27.9 SECONDS (9.95-12.35)
[2016-07-08 06:37] LABS: Eosinophil 5 % (0.00-3.0); Total Cells Counted 100
[2016-07-08 06:39] LABS: Platelet Estimate NORMAL (NORMAL)
[2016-07-08] MEDS: NovoLOG Insulin SQ SCH ×3 (08:24→16:47)
[2016-07-08] MEDS: KEPPRA 500 MG PO SCH ×2 (09:40→22:00)
[2016-07-08] MEDS: Cozaar 50 MG PO SCH (09:40)
[2016-07-08] MEDS: hydroDIURIL 25 MG PO SCH (09:40)
[2016-07-08] MEDS: Flonase NASAL NS SCH (09:40)
[2016-07-08] MEDS: ZOCOR 20MG PO SCH (09:40)
[2016-07-08] MEDS: ECOTRIN 81 MG PO SCH (09:41)
[2016-07-08] MEDS: Lopressor 50 MG PO SCH ×2 (09:41→21:59)
[2016-07-08] MEDS: Colace 100 MG PO SCH ×2 (09:41→22:01)
[2016-07-08] MEDS: NORVASC 5 MG PO SCH (09:41)
[2016-07-08] MEDS: Topamax 100 MG PO SCH ×2 (09:41→21:59)
[2016-07-08] MEDS: Protonix 40MG Tablet PO SCH (09:41)
[2016-07-08] MEDS: Lantus Insulin SQ SCH (09:42)
[2016-07-08] MEDS: NORCO 5/325 MG PO PRN ×2 (12:27→23:52)
--- NOTE | 2016-07-08 12:54 | PCM.NOTE ---
Date and Time: 07/08/16 1248 Subjective Assessment: Her is at the bedside today. He reports she is starting to act more like her normal self. They state she was put on the zyprexa in the hospital when she had her last stroke because she was seeing things that weren't there. She reports her appetite has not been quite as good here in the hospital and she usually snacks more at home. When asked about cough, her says she hasn't coughed much since he got there today and he has been here about 2 hours he said. She reports some pain in her back and hips. She was able to take a shower this AM. - Review of Systems Constitutional: No Symptoms Eyes: No Symptoms Ears, Nose, & Throat: No Symptoms Respiratory: Cough Cardiac: No Symptoms Abdominal/Gastrointestinal: No Symptoms Genitourinary Symptoms: No Symptoms Musculoskeletal: No Symptoms Skin: No Symptoms Objective Exam General Appearance: no apparent distress, alert Neurologic Exam: alert, oriented x 3, cooperative, normal mood/affect, other ( She knows who the president of the [employer] is.) Skin Exam: normal color, warm, No dry Respiratory Exam: normal breath sounds, lungs clear, No respiratory distress, No accessory muscle use, No crackles/rales, No rhonchi, No wheezing Cardiovascular Exam: regular rate/rhythm, normal heart sounds, No murmur, No friction rub, No gallop Gastrointestinal/Abdomen Exam: soft, normal bowel sounds, No tenderness, No distention, No mass, No guarding Extremity Exam: other (no c/c/e) OBJECTIVE DATA Vital Signs: Vital Signs - 24 hr Temp Pulse Resp BP Pulse Ox 07/08/16 12:00 98.2 F 75 16 124/77 96 07/08/16 08:00 98.1 F 74 14 166/92 98 07/08/16 07:27 75 16 97 07/08/16 06:00 12 07/08/16 04:00 97.7 F 71 12 157/86 96 07/08/16 02:00 16 07/08/16 00:00 98.0 F 80 16 143/87 98 07/07/16 22:00 12 07/07/16 19:29 98.0 F 78 16 131/77 96 07/07/16 19:00 66 16 95 07/07/16 16:00 98.1 F 75 16 120/78 97 Pain Assessment - Last Documented Pain Intensity 5 Pain Scale Used 0-10 Pain Scale Intake and Output: Intake & Output 07/06/16 07/07/16 07/08/16 07/09/16 06:59 06:59 06:59 06:59 Intake Total 450 420 760 Output Total 400 1300 1600 Balance 50 -880 -840 Weight 70.76 kg 70.108 kg 73.936 kg Lab Results: Accuchecks Date 07/07/16 Time 22:00 Accucheck Value: 214 Accucheck Value: 114 Accucheck Value: 130 Accucheck Value: 205 Lab Results-Last 24 Hours 07/07/16 07/07/16 07/08/16 Range/Units 12:45 12:48 05:05 WBC (4.0-10.5) K/mm3 RBC (4.1-5.4) M/mm3 Hgb (12.0-16.0) gm/dl Hct (35-47) % MCV (78-100) fl MCH (26-32) pg MCHC (32-36) g/dl RDW (11.5-14.0) % Plt Count (150-450) K/mm3 MPV (6-9.5) fl Gran % (36.0-66.0) % Lymphocytes % (24.0-44.0) % Monocytes % (0.0-12.0) % Eosinophils % (0.00-5.0) % Basophils % (0.0-0.4) % Segmented Neutrophils (36.0-66.0) % Lymphocytes (Manual) (24-44) % Monocytes (Manual) (0.0-12.0) % Eosinophils (Manual) (0.00-3.0) % Basophils # (0-0.4) Platelet Estimate (NORMAL) INR 2.56 (0.8-3.0) Sodium (136-145) mEq/L Potassium (3.5-5.1) mEq/L Chloride (98-107) mEq/L Carbon Dioxide (21-32) mEq/L Anion Gap (5-15) MEQ/L BUN (9-20) mg/dL Creatinine (0.55-1.30) mg/dl Estimated GFR ML/MIN Glucose (70-110) MG/DL Calcium (8.5-10.1) mg/dL Ur Collection Type CLEAN CATCH Urine Color YELLOW (YELLOW) Urine Appearance CLEAR (CLEAR) Urine pH 7.0 (5-6) Ur Specific Ramsay 1.020 (1.005-1.025) Urine Protein >=300 (Negative) Urine Glucose (UA) 100 (NEGATIVE) mg/dL Urine Ketones NEGATIVE (NEGATIVE) Urine Nitrite NEGATIVE (NEGATIVE) Urine Bilirubin NEGATIVE (NEGATIVE) Urine Urobilinogen 0.2 (0-1) mg/dL Urine WBC (Auto) TRACE (NEGATIVE) Urine RBC (Auto) SMALL (0-5) Vamshi/ul Urine Microscopic RBC 2-5 (0-2) /HPF Urine Microscopic WBC 5-10 (0-5) /HPF Ur Epithelial Cells RARE (FEW) /HPF Urine Bacteria FEW (NEGATIVE) /HPF Ur Random Creatinine 79.24 (30-125) MG/DL U Random Total Protein 206.3 mg/dL Specimen Received [id number] 1230 07/08/16 07/08/16 Range/Units 05:05 05:05 WBC 8.5 (4.0-10.5) K/mm3 RBC 4.49 (4.1-5.4) M/mm3 Hgb 11.1 L (12.0-16.0) gm/dl Hct 34.1 L (35-47) % MCV 75.9 L (78-100) fl MCH 24.7 L (26-32) pg MCHC 32.6 (32-36) g/dl RDW 14.0 (11.5-14.0) % Plt Count 453 H (150-450) K/mm3 MPV 10.6 H (6-9.5) fl Gran % 48.4 (36.0-66.0) % Lymphocytes % 35.4 (24.0-44.0) % Monocytes % 8.1 (0.0-12.0) % Eosinophils % 7.5 H (0.00-5.0) % Basophils % 0.6 (0.0-0.4) % Segmented Neutrophils 55 (36.0-66.0) % Lymphocytes (Manual) 38 (24-44) % Monocytes (Manual) 2 (0.0-12.0) % Eosinophils (Manual) 5 H (0.00-3.0) % Basophils # 0.05 (0-0.4) Platelet Estimate NORMAL (NORMAL) INR (0.8-3.0) Sodium 144 (136-145) mEq/L Potassium 3.9 (3.5-5.1) mEq/L Chloride 109 H (98-107) mEq/L Carbon Dioxide 24.6 (21-32) mEq/L Anion Gap 13.8 (5-15) MEQ/L BUN 27 H (9-20) mg/dL Creatinine 2.14 H (0.55-1.30) mg/dl Estimated GFR 28 ML/MIN Glucose 49 L (70-110) MG/DL Calcium 8.4 L (8.5-10.1) mg/dL Ur Collection Type Urine Color (YELLOW) Urine Appearance (CLEAR) Urine pH (5-6) Ur Specific Ramsay (1.005-1.025) Urine Protein (Negative) Urine Glucose (UA) (NEGATIVE) mg/dL Urine Ketones (NEGATIVE) Urine Nitrite (NEGATIVE) Urine Bilirubin (NEGATIVE) Urine Urobilinogen (0-1) mg/dL Urine WBC (Auto) (NEGATIVE) Urine RBC (Auto) (0-5) Vamshi/ul Urine Microscopic RBC (0-2) /HPF Urine Microscopic WBC (0-5) /HPF Ur Epithelial Cells (FEW) /HPF Urine Bacteria (NEGATIVE) /HPF Ur Random Creatinine (30-125) MG/DL U Random Total Protein mg/dL Specimen Received Radiology Exams: Radiology Procedures Category Date Time Status HEAD WITHOUT CONTRAST [CT] Stat Exams 07/07/16 08:20 Completed Ultrasound Kidney [KIDNEY] [US] Urgent Exams 07/07/16 16:00 Completed Multi-Disciplinary Progress Notes: Multi-Disciplinary Progress Notes 07/08/16 10:45 (created 07/08/16 11:45) Case Management Note by Tia Hart DISCHARGE PLAN AGAIN REVIEWED WITH PT AND . CONTINUES TO PLAN TO RETURN HOME TO PRE EPISODIC LEVEL OF [place]. DECLINED ADDNL NEEDS AT DISCHARGE. INDEPENDENT WITH ALL ADL'S. USES GLUCOMETER FOR ACCU CHECKS BEFORE MEALS AND AT BEDTIME. WILL CONTINUE TO FOLLOW AND ASSESS FOR ALL DC NEEDS. Initialized on 07/08/16 11:45 - END OF NOTE Assessment/Plan (1) Pneumonia Current Visit: Yes Status: Acute Qualifiers: Laterality: right Lung location: middle lobe of lung Assessment & Plan: Continue Zosyn. Blood cultures in lab and no growth to date. Sputum culture uncollected. WBC down to normal today. Code(s): J18.9 - PNEUMONIA, UNSPECIFIED ORGANISM (2) RSV (respiratory syncytial virus infection) Current Visit: Yes Status: Acute Code(s): B97.4 - RESPIRATORY SYNCYTIAL VIRUS CAUSING DISEASES CLASSD ELSWHR (3) History of CHF (congestive heart failure) Current Visit: Yes Status: Acute Assessment & Plan: Currently stable. Code(s): Z86.79 - PERSONAL HISTORY OF OTHER DISEASES OF THE CIRCULATORY SYSTEM (4) Diabetes type 1, controlled Current Visit: Yes Status: Acute Qualifiers: Diabetes mellitus complication status: without complication Qualified Code( s): E10.9 - Type 1 diabetes mellitus without complications Assessment & Plan: I have adjusted her lantus and short acting insulin since she has been here as she has not been eating as well as she normally would at home. Code(s): E10.9 - TYPE 1 DIABETES MELLITUS WITHOUT COMPLICATIONS (5) Seizure disorder Current Visit: Yes Status: Acute Assessment & Plan: Continue keppra. Keppra level in lab. Code(s): G40.909 - EPILEPSY, UNSP, NOT INTRACTABLE, WITHOUT STATUS EPILEPTICUS (6) History of CVA (cerebrovascular accident) Current Visit: Yes Status: Acute Assessment & Plan: Head CT yesterday was without any new changes. INR therapeutic again today. Continue to check daily INR. Code(s): Z86.73 - PRSNL HX OF TIA (TIA), AND CEREB INFRC W/O RESID DEFICITS (7) Hypertension Current Visit: Yes Status: Acute Assessment & Plan: Better controlled overnight with increasing form metoprolol tartrate 25 mg daily to metoprolol tartrate 50 mg po bid. Continue HCTZ and losartan. Motor Pool Clerk consulted to see patient while she is here. Code(s): I10 - ESSENTIAL (PRIMARY) HYPERTENSION (8) Chronic kidney disease (CKD) Current Visit: Yes Status: Acute Assessment & Plan: Zoysn has been adjusted for CKD by the pharmacist. Motor Pool Clerk to see her. Code(s): N18.9 - CHRONIC KIDNEY DISEASE, UNSPECIFIED (9) Altered mental status Current Visit: Yes Status: Resolved Assessment & Plan: Resolved. She is alert and oriented x 3. Will hold zyprexa again tonight as well as baclofen and mirtzapine. Keppra level ordered yesterday and in lab. Code(s): R41.82 - ALTERED MENTAL STATUS, UNSPECIFIED
[2016-07-08] MEDS: Coumadin 2 MG PO SCH (18:20)
[2016-07-08] MEDS ORDERED: Lantus Insulin SQ SCH (22:00)
[2016-07-09] MEDS: Sodium Chloride 0.9% 10 ML FLUSH Syringe IV SCH ×2 (05:40→13:30)
[2016-07-09] MEDS: Zosyn 2.25 GM 2.25 GM in Dextrose 5%/Water IV Soln. 100ML PLUS BAG 100 ML IV SCH ×2 (05:40→12:03)
[2016-07-09 06:08] LABS: INR 2.21 (0.8-3.0); PROTIME 24.2 SECONDS (9.95-12.35)
[2016-07-09 06:20] LABS: ALBUMIN 1.8 g/dL (3.4-5.0); ANION GAP 15.2 MEQ/L (5-15); BILIRUBIN,TOTAL 0.1 mg/dL (0.2-1.0); Carbon Dioxide 23.9 mEq/L (21-32); Total Protein 5.9 gm/dL (6.4-8.2)
--- NOTE | 2016-07-09 07:58 | CONS ---
CONSULT DATE: 07/08/2016 REASON FOR CONSULT: Evaluation of renal function, hypertension. HISTORY: Emilee Parker is a pleasant 31 year-old female with significant history of lupus anticoagulant, seizure disorder and diabetes type 1 admitted for shortness of breath and cough. She was found to be respiratory syncytial virus positive. She was also having fever. Her son and both were sick with the same complaint. Her blood pressure was uncontrolled yesterday. She denied any nausea, vomiting, headache, chest pain, rash, fever, chills, constipation, diarrhea, dizziness, lightheadedness, focal weakness today. REVIEW OF SYSTEMS: All of the 12 review of systems were negative except in history of present illness. PAST MEDICAL HISTORY: Congestive heart failure. Chronic kidney disease stage III. History of stroke. Seizure disorder. Lupus anticoagulant. Fibromyalgia. Tachycardia. Peripheral neuropathy. PAST SURGICAL HISTORY: Esophagus dilated in 2009. Tubal ligation in 2005. CURRENT MEDICATIONS: Amlodipine 10 mg daily, aspirin 81 mg daily, docusate sodium 100 mg b.i.d., Flonase, hydrochlorothiazide 25 mg daily, insulin aspart , Keppra 750 mg b.i.d., losartan 100 mg daily, metoprolol tartrate 50 mg b.i.d., pantoprazole 40 mg daily, Cymbalta 40 mg daily, topiramate 50 mg b.i.d., Coumadin 4 mg p.o. on Thursday, Thursday, , Thursday, warfarin 5 mg on Thursday, Thursday, Thursday, Tylenol 650 mg every four hours PRN, DuoNeb inhaler 3 ml every four hours PRN, guaifenesin 100 mg, Robitussin every four hours PRN, [place] 5/25 mg 1 tablet p.o. every 8 hours PRN. SOCIAL HISTORY: She is . No history of smoking, alcohol, or use of any illicit drugs. FAMILY HISTORY: No one else has kidney disease. Significant for diabetes and hypertension. PHYSICAL EXAMINATION: VITAL SIGNS: Temperature 98.2F, pulse 75, respiratory rate 16, blood pressure 124/77. GENERAL: Alert, oriented, not in distress. HEENT: Oral mucosa moist. NECK: Supple. CHEST: Clear to auscultation. HEART: S1, S2 normal, no rub. ABDOMEN: Soft, nontender. Bowel sounds present. EXTREMITIES: No edema. No clubbing. No cyanosis. CYBERATHLETE: No focal deficit. LAB DATA AND TESTS: BUN 27, creatinine 2.14, glucose 49, sodium 144, potassium 3.9, chloride 109, carbon dioxide 24.6, anion gap 13.8, calcium 8.4. White blood cell 8.5, hemoglobin 11.1, PLT 453,000. Urine protein 206, creatinine 79. UA white blood cell 5-10, red blood cells 2-5. ASSESSMENT AND PLAN: 1) CHRONIC KIDNEY DISEASE STAGE IV: Her chronic kidney disease is most likely secondary to diabetic nephropathy. She has around 2.5 gm proteinuria. Red blood cells UA is minimal. Since she has history of lupus anticoagulant I will check compliment level double standard DNA. I will also do work up for glomerulonephritis. I will check sPAP and lichen assay. Her renal ultrasound showed right kidney 12.8 cm, left kidney 13.1 cm. Kidney size is slightly larger characteristic diabetic nephropathy. 2) HYPERTENSION. Much better after adding amlodipine. Better control of blood pressure will help her renal function as well as proteinuria. Avoid high salt diet. Avoiding high salt will help renal function, proteinuria as well as blood pressure. 3) BONE MINERAL DISEASE. Will check PT, phosphorus and vitamin D level. 4) DIABETES MELLITUS TYPE 1. 5) BRONCHITIS SECONDARY TO RESPIRATORY SYNCYTIAL VIRUS. Continue supportive measures. Thank you Dr. Shaffer for giving me the opportunity to participate in the care of this patient. I will follow this patient along with you.
[2016-07-09] MEDS: NovoLOG Insulin SQ SCH ×2 (08:49→12:02)
--- NOTE | 2016-07-09 09:00 | PCM.DCORD ---
- Discharge Discharge Date: 07/09/16 Disposition: Home, Self-Care Condition: Fair Prescriptions: New Amoxicillin/Potassium Clav [Augmentin 875 mg (Amox Tr-K Clv 875-125 mg)] 1 each PO BID #8 tablet Insulin Glargine [Lantus Insulin] 20 unit SQ QAM #0 unit Insulin Glargine [Lantus Insulin] 14 unit SQ QPM #0 unit Metoprolol Tartrate 50 mg [Lopressor 50 MG] 50 mg PO BID #60 tablet Amlodipine Besylate 5 mg [Norvasc 5 mg] 10 mg PO QAM #30 tablet Insulin Aspart [NovoLOG Insulin] 4 unit SQ TIDAC #0 unit Continue Losartan Potassium 100 mg PO DAILY Levetiracetam [Keppra] 750 mg PO BID Topiramate [Topamax] 50 mg PO BID Fluticasone Propionate [Flonase NASAL] 16 gm NS DAILY Docusate Sodium 100 mg [Colace 100 MG] 100 mg PO BID Sumatriptan Succinate 25 mg [Imitrex 25 MG] 25 mg PO Q8H PRN PRN PRN Reason: Headache Hydrochlorothiazide 25 mg [hydroDIURIL 25 MG] 25 mg PO DAILY Atorvastatin Calcium 40 mg PO DAILY Aspirin 81 gm Chew [Baby Aspirin 81 mg Chew] 81 mg PO DAILY PANTOPRAZOLE 40 mg Tablet [Protonix 40MG Tablet] 40 mg PO DAILY Warfarin Sodium 5 mg [Coumadin 5 MG] 5 mg PO UD Warfarin Sodium 2 mg [Coumadin 2 MG] 4 mg PO UD Hydrocodone Bit/Acetaminophen [Hydrocodon-Acetaminophen 5-325] 1 each PO Q4HPRN PRN PRN Reason: Pain Discontinued Prochlorperazine Maleate 5 mg* [Compazine 5 MG] 5 mg PO Q6HPRN PRN PRN Reason: Nausea Insulin Aspart [Novolog Flexpen] 10 unit SQ TIDAC Olanzapine [Zyprexa] 5 mg PO DAILY Mirtazapine 30 mg [Remeron 30 mg] 30 mg PO DAILY Metoprolol Tartrate 25 mg [Lopressor 25MG Tab] 25 mg PO DAILY Insulin Glargine [Lantus Insulin] 20 units SQ BID Baclofen 10 mg [Lioresal 10 mg] 10 mg PO TID Follow up with: GREGORY PAYNE [Primary Care Provider] - SURINDER ANGEL MD [CONSULTING PHYSICIAN] - 1 Week
[2016-07-09] MEDS: Colace 100 MG PO SCH (09:13)
[2016-07-09] MEDS: Flonase NASAL NS SCH (09:13)
[2016-07-09] MEDS: KEPPRA 500 MG PO SCH (09:13)
[2016-07-09] MEDS: NORVASC 5 MG PO SCH (09:14)
[2016-07-09] MEDS: Protonix 40MG Tablet PO SCH (09:14)
[2016-07-09] MEDS: Lantus Insulin SQ SCH (09:14)
[2016-07-09] MEDS: Topamax 100 MG PO SCH (09:14)
[2016-07-09] MEDS: Lopressor 50 MG PO SCH (09:14)
[2016-07-09] MEDS: ECOTRIN 81 MG PO SCH (09:14)
[2016-07-09] MEDS: Cozaar 50 MG PO SCH (09:14)
[2016-07-09] MEDS: hydroDIURIL 25 MG PO SCH (09:14)
[2016-07-09] MEDS: ZOCOR 20MG PO SCH (09:14)
--- NOTE | 2016-07-09 09:26 | DS ---
DISCHARGE DIAGNOSES: 1) RIGHT MIDDLE LOBE PNEUMONIA. 2) RESPIRATORY SYNCYTIAL VIRUS. 3) HISTORY OF CONGESTIVE HEART FAILURE. 4) DIABETES MELLITUS TYPE 1. 5) HISTORY OF SEIZURE DISORDER. 6) HISTORY OF CEREBROVASCULAR ACCIDENT. 7) HYPERTENSION. 8) ALTERED MENTAL STATUS. 9) CHRONIC KIDNEY DISEASE. DISCHARGE PHYSICAL EXAMINATION: VITALS: Temperature current 97.9F, temperature max 98.6F, heart rate 73 to 76, respiratory rate 15 to 20, blood pressure 119 to 129 over 68 to 82. Oxygen saturation 92 to 96% on room air. GENERAL: The patient was sitting up in bed in no acute distress. She is alert and oriented x3. CVS: She had a regular rate and rhythm. No murmurs, gallops or rubs are appreciated. CHEST: She has a few scattered rhonchi, equal breath sounds. No crackles were appreciated. ABDOMEN: Soft, nontender, nondistended with normal bowel sounds. EXTREMITIES: No clubbing, cyanosis or edema. SKIN: Warm, dry and intact. IV in her left antecubital fossa. HOSPITAL COURSE: 1) RIGHT MIDDLE LOBE PNEUMONIA: She was initially started on ceftriaxone, azithromycin on 07/06/2016. I changed this to Zosyn given her multiple hospitalizations in the past. Her white blood cell count was significantly elevated on admission at 10,900 with 80% neutrophils. On 07/08/2016 the white blood cell count was down to 8,500 with 55% neutrophils and 38% lymphocytes. A seven day course of antibiotics with Augmentin twice a day for four more days. 2) RESPIRATORY SYNCYTIAL VIRUS: She tested positive for this on admission. We continued supportive treatment with breathing treatments as needed. She was in contact isolation. 3) HISTORY OF CONGESTIVE HEART FAILURE: She was given fluids initially when she came in through the emergency room and these were discontinued. We did not want to fluid overload her. 4) DIABETES MELLITUS TYPE 1. Her Lantus was decreased during her hospitalization from 20 units subcutaneously b.i.d. to 20 units in the morning and 14 units in the evening. She had one low which she was not symptomatic with that was treated with orange juice and came up without any difficulty. Her short-acting insulin was also decreased from 10 units with meals to 4 units with meals. The patient had reported that she usually snacks more at home. 5) HISTORY OF SEIZURE DISORDER: Keppra level was sent but the results are not back yet. She did not have any seizures while she was here in the hospital. 6) HISTORY OF CVA: She was continued on warfarin and her international normalized ratio was therapeutic throughout her hospitalization. 7) HYPERTENSION: Her blood pressure did go up to over 200 the director of early childhood of 07/07/2016. Dr. Farnsworth was consulted and added amlodipine 10 mg p.o. daily and I also increased her metoprolol tartrate from 25 mg in the morning to 50 mg b.i.d. Her blood pressure has been well controlled after this. 8) ALTERED MENTAL STATUS: The morning of 07/07/2016 she was not oriented at all and had the high blood pressure the night before. STAT CT of her head without contrast was ordered and did not show any acute changes. The patient's mental status resolved by noontime that same day. She was then alert and oriented x3. She continued to be alert and oriented. I held her Remeron and Zyprexa during her hospital stay as well as her baclofen and going to discontinue all these and see how she does without them. She stated the Zyprexa had been started when she had nightmares with her first stroke. 9) CHRONIC KIDNEY DISEASE IV: Dr. Farnsworth, Vehicle Upholsterer, was consulted and saw the patient and ordered some further testing for this and she will follow up with him as an outpatient. DISCHARGE MEDICATIONS: She is to resume all of her home medications except Remeron, Zyprexa and baclofen which were discontinued. Her Lantus was changed to 20 units in the morning and 14 units in the evening and her NovoLog to 4 units with meals. Her metoprolol tartrate is to be 50 mg b.i.d. and amlodipine 10 mg daily was also added to her home medications. FOLLOW UP: She is to follow up with me in one week and Dr. Farnsworth in one week. DISPOSITION: The patient was discharged home in fair condition.
[2016-07-09 16:09] VITALS: BP 137/84; PULSE 71; O2SAT 99
[2016-07-10 12:11] LABS: Kappa Free Light Chain 64.6 mg/L (0.0-22.2); Kappa Lambda Ratio 1.455 (0.410-1.430)
[2016-07-10 15:34] LABS: aANCA IgG Titer Not Indicated (Not Indicated); pANCA IgG Titer Not Indicated (Not Indicated)
[2016-07-14 00:11] LABS: DNase-B Antibody <86 U/mL (0-260)
== END 2016-07-09 17:50 | disposition home or self-care (01) | DRG 194 ==
LOC: ED 18:08 → MED SURG 22:41
PROVIDERS: ADMIT Internal Medicine; ATTEND Internal Medicine
DX: J18.9 Pneumonia, unspecified organism (principal); N18.4 Chronic kidney disease, stage 4 (severe); I50.30 Unspecified diastolic (congestive) heart failure; B97.4 Respiratory syncytial virus as the cause of diseases classified elsewhere; J40 Bronchitis, not specified as acute or chronic; E10.8 Type 1 diabetes mellitus with unspecified complications; G40.909 Epilepsy, unspecified, not intractable, without status epilepticus; I10 Essential (primary) hypertension; R41.82 Altered mental status, unspecified; I12.9 Hypertensive chronic kidney disease with stage 1 through stage 4 chronic kidney disease, or unspecified chronic kidney disease; M79.7 Fibromyalgia; M89.8X9 Other specified disorders of bone, unspecified site; G62.9 Polyneuropathy, unspecified; Z79.01 Long term (current) use of anticoagulants; Z79.899 Other long term (current) drug therapy
CPT/HCPCS: 36000; 36415; 70450; 71020; 76770; 80048; 80053; 80177; 81000; 82570; 82962; 83520; 83605; 83880; 83883; 84155; 84156; 84703; 85025; 85610; 86160; 86215; 86255; 86256; 86334; 87040; 87086; 87205; 87430; 87631; 93005; 93041; 94640; 94760; 96360; 96365; 99284; J0456; J0696; J2543

== ENCOUNTER 2016-08-13 19:44 | Emergency (ER) | payer MEDICARE ==
[2016-08-13] MEDS ORDERED: Sodium Chloride 0.9% 1000 ML 1,000 ML IV SCH (20:15)
[2016-08-13 20:28] LABS: BASOPHIL % 0.5 % (0.0-0.4); Eosinophil % 2.8 % (0.00-5.0); Granulocytes % 62.3 % (36.0-66.0); Lymphocytes % 26.7 % (24.0-44.0); Mean Corpuscular Hemoglobin 24.9 pg (26-32); Mean Platelet Volume 11.2 fl (6-9.5); Monocytes % 7.7 % (0.0-12.0); Platelet Count 489 K/mm3 (150-450); Red Blood Count 5.03 M/mm3 (4.1-5.4); Red Cell Distribution Width 14.2 % (11.5-14.0)
[2016-08-13] MEDS ORDERED: Sodium Chloride 0.9% 1000 ML 1,000 ML ONE (20:32)
[2016-08-13 20:48] LABS: INR 2.42 (0.8-3.0); PROTIME 26.4 SECONDS (9.95-12.35)
[2016-08-13 20:50] LABS: ALBUMIN 2.7 g/dL (3.4-5.0); ANION GAP 12.6 MEQ/L (5-15); BILIRUBIN,TOTAL 0.2 mg/dL (0.2-1.0); Carbon Dioxide 28.9 mEq/L (21-32); Potassium 4.2 mEq/L (3.5-5.1); Total Protein 6.9 gm/dL (6.4-8.2)
[2016-08-13 20:55] LABS: COMPLETE URINE MICROSCOPIC? YES; Collection Type CLEAN CATCH; Ph 6.5 (5-6)
[2016-08-13 20:56] LABS: Bacteria MODERATE /HPF (NEGATIVE); Epithelial Cells MODERATE /HPF (FEW)
[2016-08-13] MEDS ORDERED: Nitrostat 0.4 MG (ED) SL ONE ×6 (21:21→23:41)
--- NOTE | 2016-08-13 21:21 | ERPHSYRPT ---
- History of Present Illness Time Seen by Provider: 08/13/16 20:07 Source: patient Exam Limitations: no limitations Patient Subjective Stated Complaint: Pt sts migraine headache x 2 days, sts similar to migraines in the past. Sts pain is in occipital region of head and radiating into neck. Pt sts that her pain is a 7/10. Sts it is sharp in nature. Sts also with left sided weakness since yesterday. Sts that she has hx of TIA in past in which she sees at for. Pt sts has been vomiting, has not taken BP meds in 2 days due to this. Sts vomiting is from [place]. Triage Nursing Assessment: Pt alert, oriented, answers all questions appropriately. Skin p/w/d, resps non-labored. Pt able to transfer self with assist x 1 wheelchair to bed. No facial droop noted. Tongue midline. Left arm with ataxic movements, no drift noted. Left hand weakness noted. Left leg weakness noted. Strong pulses all extremities. Physician History: SINCE YESTERDAY PT HAS HAD LEFT SIDED WEAKNESS, BLURRY VISION, HANDS TINGLING AND HER TYPICAL OCCIPITAL MIGRAINE HEADACHE. PT HAD AN EMBOLIC CVA IN 2015 AND IS TAKING COUMADIN. Allergies/Adverse Reactions: latex Allergy (Intermediate, Verified 08/13/16 20:25) Iodinated Contrast Media - Oral and [Iodinated Contrast Media - IV Dye] Allergy (Verified 08/13/16 20:25) morphine Allergy (Verified 08/13/16 20:25) Home Medications: Levetiracetam [Keppra] 750 mg PO BID 02/15/14 [History] Losartan Potassium 100 mg PO DAILY 02/15/14 [History] Docusate Sodium 100 mg [Colace 100 MG] 100 mg PO BID 08/30/15 [History] Fluticasone Propionate [Flonase NASAL] 16 gm NS DAILY 08/30/15 [History] Sumatriptan Succinate 25 mg [Imitrex 25 MG] 25 mg PO Q8H PRN PRN 08/30/15 [ History] Topiramate [Topamax] 50 mg PO BID 08/30/15 [History] Aspirin 81 gm Chew [Baby Aspirin 81 mg Chew] 81 mg PO DAILY 03/17/16 [ History] Atorvastatin Calcium 40 mg PO DAILY 03/17/16 [History] Hydrochlorothiazide 25 mg [hydroDIURIL 25 MG] 25 mg PO DAILY 03/17/16 [ History] PANTOPRAZOLE 40 mg Tablet [Protonix 40MG Tablet] 40 mg PO DAILY 03/17/16 [ History] Hydrocodone Bit/Acetaminophen [Hydrocodon-Acetaminophen 5-325] 1 each PO Q4HPRN PRN 07/05/16 [History] Ferrous Sulfate 325 mg PO TID 08/13/16 [History] Mirtazapine 30 mg [Remeron 30 mg] 30 mg PO HS 08/13/16 [History] Olanzapine 2.5 mg PO HS 08/13/16 [History] Polyethylene Glycol 3350 17 gm [Miralax Powder 17GM PACKET] 17 gm PO DAILY [History] Warfarin Sodium 6 mg PO DAILY 08/13/16 [History] Hx Tetanus, Diphtheria Vaccination/Date Given: Yes Hx Influenza Vaccination/Date Given: Yes Hx Pneumococcal Vaccination/Date Given: No Immunizations Up to Date: Yes - Review of Systems Constitutional: Weakness (LEFT SIDED) Eyes: Vision Changes Respiratory: No Dyspnea Cardiac: No Chest Pain Abdominal/Gastrointestinal: No Abdominal Pain Neurological: Headache, Sensory Changes (TINGLING IN THE HANDS) Endocrine: No Excessive Sweating All Other Systems: Reviewed and Negative - Past Medical History Pertinent Past Medical History: Yes Neurological History: Migraines, Seizures, Stroke ENT History: No Pertinent History Cardiac History: High Cholesterol, Hypertension Respiratory History: CHF, Pneumonia, Pulmonary Embolism Endocrine Medical History: Diabetes Type I Musculoskeletal History: No Pertinent History, Fibromyalgia GI Medical History: No Pertinent History, GERD History: No Pertinent History Psycho-Social History: Anxiety, Depression Female Reproductive Disorders: No Pertinent History Other Medical History: lupus-clotting disorder - Past Surgical History Past Surgical History: Yes Neuro Surgical History: No Pertinent History Cardiac: No Pertinent History Respiratory: No Pertinent History Gastrointestinal: No Pertinent History Genitourinary: No Pertinent History Musculoskeletal: No Pertinent History Female Surgical History: Tubal Ligation Other Surgical History: esophagus stretched, per pt - Social History Smoking Status: Never smoker Exposure to second hand smoke: No Drug Use: none Patient Lives Alone: No - Female History Hx Last Menstrual Period: now - Nursing Vital Signs Nursing Vital Signs: Initial Vital Signs Temperature 98.2 F Temperature Source Oral Pulse Rate 86 Respiratory Rate 18 Blood Pressure [] 195/100 Blood Pressure [] 187/101 Pain Intensity 2 - Physical Exam General Appearance: no apparent distress, alert Eye Exam: PERRL/EOMI Ears, Nose, Throat Exam: TMs normal, pharynx normal, moist mucous membranes Neck Exam: normal inspection Respiratory Exam: lungs clear Cardiovascular Exam: normal heart sounds Gastrointestinal/Abdomen Exam: soft, normal bowel sounds Back Exam: normal range of motion Extremity Exam: normal inspection, normal range of motion, No pedal edema Neurologic Exam: alert, cooperative, estimator jewelry II-XII nml as tested, normal mood/ affect, sensation nml, No motor deficits, No sensory deficit Skin Exam: warm, dry SpO2 Interpretation: normal SpO2: 98 Oxygen Delivery: Room Air - Course Nursing assessment & vital signs reviewed: Yes EKG Interpreted by Me: RATE (92), Sinus Rhythm, NORMAL AXIS, NORMAL INTERVALS - Radiology Exams Chest X-ray Interpretation: Interpreted by me, No Pneumonia - CT Exams Head CT Interpretation: Discussed w/radiologist (COMPARED TO 07/07/15: STABLE BILATERAL PERIVENTRICULAR HYPODENSITIES. MRI PROVEN M.S. NO NEW/ACUTE FINDINGS.) Ordered Tests: Active Orders 24 hr Category Date Time Status Acute Dialysis Nurse STAT Care 08/13/16 20:13 Active Clean Catch Urine Specimen STAT Care 08/13/16 20:13 Active EKG-ER Only STAT Care 08/13/16 20:13 Active Pulse Oximetry (ED) STAT Care 08/13/16 20:13 Active CHEST 1 VIEW (PORTABLE) Stat Exams 08/13/16 20:19 Taken HEAD WITHOUT CONTRAST [CT] Stat Exams 08/13/16 20:14 Taken CBC W DIFF Stat Lab 08/13/16 20:24 Completed CMP Stat Lab 08/13/16 20:24 Completed CULTURE,URINE Stat Lab 08/13/16 21:28 Ordered HCG QUALITATIVE,SERUM Stat Lab 08/13/16 20:24 Completed LIPASE Stat Lab 08/13/16 20:24 Completed PROTIME WITH INR Stat Lab 08/13/16 20:24 Completed PTT Stat Lab 08/13/16 20:24 Completed UA W/ MICROSCOPIC Stat Lab 08/13/16 20:41 Completed Medication Summary Generic Name Dose Route Start Last Admin Trade Name Freq PRN Reason Stop Dose Admin Sodium Chloride 1,000 mls @ 100 mls/hr 08/13/16 20:15 08/13/16 20:33 Sodium Chloride 0.9% 1000 Ml IV 09/12/16 20:14 100 mls/hr .Q10H NEIL Administration Discontinued Medications Generic Name Dose Route Start Last Admin Trade Name Joseq PRN Reason Stop Dose Admin Sodium Chloride Confirm 08/13/16 20:32 Sodium Chloride 0.9% 1000 Ml Administered 08/13/16 20:33 Dose 1,000 mls @ ud .ROUTE .STK-MED ONE Ceftriaxone Sodium/Dextrose 50 mls @ 100 mls/hr 08/13/16 21:27 08/13/16 21:32 Rocephin 1 Gm-D5w 50 Ml Bag IV 08/13/16 21:56 100 mls/hr STAT ONE Administration Sodium Chloride 1,000 mls @ 999 mls/hr 08/13/16 21:26 08/13/16 21:32 Sodium Chloride 0.9% 1000 Ml IV 08/13/16 22:26 999 mls/hr .Q1H1M STA Administration Ceftriaxone Sodium/Dextrose Confirm 08/13/16 21:31 Rocephin 1 Gm-D5w 50 Ml Bag Administered 08/13/16 21:32 Dose 50 mls @ ud IV .STK-MED ONE Nitroglycerin 0.4 mg 08/13/16 21:21 08/13/16 21:24 Nitrostat 0.4 Mg (Ed) SL 08/13/16 21:22 0.4 mg STAT ONE Administration Nitroglycerin Confirm 08/13/16 21:24 Nitrostat 0.4 Mg (Ed) Administered 08/13/16 21:25 Dose 0.4 mg SL .STK-MED ONE Lab/Rad Data: Laboratory Result Diagrams 08/13/16 20:24 08/13/16 20:24 Laboratory Results 08/13/16 08/13/16 08/13/16 Range/Units 20:41 20:24 20:24 WBC (4.0-10.5) K/mm3 RBC (4.1-5.4) M/mm3 Hgb (12.0-16.0) gm/dl Hct (35-47) % MCV (78-100) fl MCH (26-32) pg MCHC (32-36) g/dl RDW (11.5-14.0) % Plt Count (150-450) K/mm3 MPV (6-9.5) fl Gran % (36.0-66.0) % Lymphocytes % (24.0-44.0) % Monocytes % (0.0-12.0) % Eosinophils % (0.00-5.0) % Basophils % (0.0-0.4) % Basophils # (0-0.4) INR 2.42 (0.8-3.0) PTT 47.0 H (25.3-37.0) SECONDS Sodium (136-145) mEq/L Potassium (3.5-5.1) mEq/L Chloride (98-107) mEq/L Carbon Dioxide (21-32) mEq/L Anion Gap (5-15) MEQ/L BUN (9-20) mg/dL Creatinine (0.55-1.30) mg/dl Estimated GFR ML/MIN Glucose (70-110) MG/DL Calcium (8.5-10.1) mg/dL Total Bilirubin (0.2-1.0) mg/dL AST (15-37) U/L ALT (12-78) U/L Alkaline Phosphatase (46-116) U/L Serum Total Protein (6.4-8.2) gm/dL Albumin (3.4-5.0) g/dL Lipase (73-393) U/L Serum , Qual NEGATIVE (Negative) Ur Collection Type CLEAN CATCH Urine Color YELLOW (YELLOW) Urine Appearance CLEAR (CLEAR) Urine pH 6.5 (5-6) Ur Specific [place] 1.020 (1.005-1.025) Urine Protein >=300 (Negative) Urine Glucose (UA) >=1000 (NEGATIVE) mg/dL Urine Ketones NEGATIVE (NEGATIVE) Urine Nitrite NEGATIVE (NEGATIVE) Urine Bilirubin NEGATIVE (NEGATIVE) Urine Urobilinogen 0.2 (0-1) mg/dL Urine WBC (Auto) NEGATIVE (NEGATIVE) Urine RBC (Auto) MODERATE (0-5) Vamshi/ul Urine Microscopic RBC 15-25 (0-2) /HPF Urine Microscopic WBC 2-5 (0-5) /HPF Ur Epithelial Cells MODERATE (FEW) /HPF Urine Bacteria MODERATE (NEGATIVE) /HPF Slides for Path Review Specimen Received 3/203408/13/16 08/13/16 Range/Units 20:24 20:24 WBC 10.0 (4.0-10.5) K/mm3 RBC 5.03 (4.1-5.4) M/mm3 Hgb 12.5 (12.0-16.0) gm/dl Hct 36.7 (35-47) % MCV 73.0 L (78-100) fl MCH 24.9 L (26-32) pg MCHC 34.1 (32-36) g/dl RDW 14.2 H (11.5-14.0) % Plt Count 489 H (150-450) K/mm3 MPV 11.2 H (6-9.5) fl Gran % 62.3 (36.0-66.0) % Lymphocytes % 26.7 (24.0-44.0) % Monocytes % 7.7 (0.0-12.0) % Eosinophils % 2.8 (0.00-5.0) % Basophils % 0.5 (0.0-0.4) % Basophils # 0.05 (0-0.4) INR (0.8-3.0) PTT (25.3-37.0) SECONDS Sodium 137 (136-145) mEq/L Potassium 4.2 (3.5-5.1) mEq/L Chloride 100 (98-107) mEq/L Carbon Dioxide 28.9 (21-32) mEq/L Anion Gap 12.6 (5-15) MEQ/L BUN 31 H (9-20) mg/dL Creatinine 1.96 H (0.55-1.30) mg/dl Estimated GFR 31 ML/MIN Glucose 380 H (70-110) MG/DL Calcium 8.9 (8.5-10.1) mg/dL Total Bilirubin 0.2 (0.2-1.0) mg/dL AST 20 (15-37) U/L ALT 15 (12-78) U/L Alkaline Phosphatase 114 (46-116) U/L Serum Total Protein 6.9 (6.4-8.2) gm/dL Albumin 2.7 L (3.4-5.0) g/dL Lipase 82 (73-393) U/L Serum , Qual (Negative) Ur Collection Type Urine Color (YELLOW) Urine Appearance (CLEAR) Urine pH (5-6) Ur Specific [place] (1.005-1.025) Urine Protein (Negative) Urine Glucose (UA) (NEGATIVE) mg/dL Urine Ketones (NEGATIVE) Urine Nitrite (NEGATIVE) Urine Bilirubin (NEGATIVE) Urine Urobilinogen (0-1) mg/dL Urine WBC (Auto) (NEGATIVE) Urine RBC (Auto) (0-5) Vamshi/ul Urine Microscopic RBC (0-2) /HPF Urine Microscopic WBC (0-5) /HPF Ur Epithelial Cells (FEW) /HPF Urine Bacteria (NEGATIVE) /HPF Slides for Path Review YES Specimen Received - Departure Time of Disposition: 22:52 Departure Disposition: Home Clinical Impression: HEADACHE, UTI Condition: Stable Critical Care Time: No Referrals: GREGORY PAYNE [Primary Care Provider] - Instructions: Headache, Urinary Tract Infection (UTI) Additional Instructions: FOLLOW UP WITH PRIVATE DOCTOR TOMORROW. Prescriptions: Nitrofurantoin Macro 100 mg [Macrobid 100MG Capsule] 100 mg PO BID #20 capsule
[2016-08-13] MEDS ORDERED: Sodium Chloride 0.9% 1000 ML 1,000 ML IV STA (21:26)
[2016-08-13] MEDS ORDERED: ROCEPHIN 1 Gm-D5w 50 ml Bag** 50 ML IV ONE ×2 (21:27→21:31)
[2016-08-13] MEDS ORDERED: Catapres 0.1 MG PO ONE (22:56)
[2016-08-13 22:58] VITALS: O2SAT 100
[2016-08-13] MEDS ORDERED: Catapres 0.1 MG ONE (23:00)
[2016-08-13 23:57] VITALS: BP 179/100; PULSE 78
--- NOTE | 2016-08-14 08:39 | XRAY ---
Indication: Left-sided weakness. Migraine headaches. Multiple contiguous axial images obtained through the head without contrast. Comparison: July 07, 2016. Stable patchy periventricular hypo-attenuations bilaterally. Stable lateral ventricular prominence. Third and fourth ventricles unremarkable. No acute intracranial hemorrhage, abnormal extra-axial fluid collection, or mass effect. Bony calvarium intact. Visualized paranasal sinuses and mastoid air cells are pneumatized and clear. Impression: 1. Stable patchy periventricular hypoattenuations bilaterally. Findings favored to be multiple sclerosis as seen on MRI brain of August 30, 2015. 2. No new/acute intracranial abnormalities. CT DI 70.77
--- NOTE | 2016-08-14 08:51 | XRAY ---
Indication: Weakness. Comparison: July 05, 2016. Portable chest demonstrates minimal right base fibrosis/scarring. Remaining heart, lungs, and bony thorax normal.
== END 2016-08-13 23:57 | disposition home or self-care (01) ==
LOC: ED 19:44
DX: R51 Headache (principal); N39.0 Urinary tract infection, site not specified; Z79.01 Long term (current) use of anticoagulants; Z79.899 Other long term (current) drug therapy; R20.2 Paresthesia of skin; I10 Essential (primary) hypertension; E78.00 Pure hypercholesterolemia, unspecified; E10.9 Type 1 diabetes mellitus without complications
CPT/HCPCS: 93041; 99284; 96360; 96361; 93005; 81000; 85610; 85730; 36415; 84703; 83690; 87186; 85025; 87077; 80053; 87086; 71010; 70450; A9270; J0696

== ENCOUNTER 2016-11-02 23:09 | Emergency (ER) | payer MEDICARE ==
[2016-11-02] MEDS ORDERED: Zofran 4 MG/2 ML VIAL IV ONE (23:44)
[2016-11-02] MEDS ORDERED: Sodium Chloride 0.9% 1000 ML 1,000 ML IV STA (23:44)
[2016-11-02] MEDS ORDERED: SUBLIMAZE 100 MCG/2 ML IV ONE (23:45)
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
[2016-11-02] MEDS ORDERED: SUBLIMAZE 100 MCG/2 ML ONE (23:57)
[2016-11-02] MEDS ORDERED: Zofran 4 MG/2 ML VIAL ONE (23:57)
[2016-11-02] MEDS ORDERED: Sodium Chloride 0.9% 1000 ML 1,000 ML ONE (23:57)
[2016-11-03 00:06] LABS: BASOPHIL % 0.9 % (0.0-0.4); Eosinophil % 3.7 % (0.00-5.0); Granulocytes % 55.3 % (36.0-66.0); Lymphocytes % 32.7 % (24.0-44.0); Mean Cell Volume 74.5 fl (78-100); Mean Platelet Volume 10.9 fl (6-9.5); Monocytes % 7.4 % (0.0-12.0); Platelet Count 457 K/mm3 (150-450); Red Blood Count 4.67 M/mm3 (4.1-5.4); Red Cell Distribution Width 13.6 % (11.5-14.0); White Blood Count 11.3 K/mm3 (4.0-10.5)
[2016-11-03 00:21] LABS: ANION GAP 11.5 MEQ/L (5-15); Carbon Dioxide 27.8 mEq/L (21-32); Potassium 3.6 mEq/L (3.5-5.1)
[2016-11-03 00:57] LABS: Bacteria FEW /HPF (NEGATIVE); COMPLETE URINE MICROSCOPIC? YES; Collection Type CLEAN CATCH; Epithelial Cells MODERATE /HPF (FEW)
[2016-11-03 00:58] LABS: ADD URINE CULTURE? YES (NO)
[2016-11-03] MEDS ORDERED: SUBLIMAZE 100 MCG/2 ML IV ONE (01:15)
[2016-11-03] MEDS ORDERED: SUBLIMAZE 100 MCG/2 ML ONE (01:19)
[2016-11-03 01:20] VITALS: PULSE 88
[2016-11-03] MEDS ORDERED: ROCEPHIN 1 Gm-D5w 50 ml Bag** 1 G/50 ML IVPB IV STA (01:36)
[2016-11-03] MEDS ORDERED: ROCEPHIN 1 Gm-D5w 50 ml Bag** 1 G/50 ML IVPB IV ONE (01:38)
[2016-11-03 03:11] VITALS: BP 184/114; O2SAT 100
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
== END 2016-11-03 03:11 | disposition home or self-care (01) ==
LOC: ED 23:09
DX: S29.012A Strain of muscle and tendon of back wall of thorax, initial encounter (principal); S39.012A Strain of muscle, fascia and tendon of lower back, initial encounter; S20.212A Contusion of left front wall of thorax, initial encounter; N39.0 Urinary tract infection, site not specified; V49.49XA Driver injured in collision with other motor vehicles in traffic accident, initial encounter; M54.2 Cervicalgia; M54.6 Pain in thoracic spine; M54.5 Low back pain; M25.552 Pain in left hip; R07.89 Other chest pain
CPT/HCPCS: 36000; 36415; 71020; 71100; 72128; 72131; 72192; 80048; 81000; 85025; 87086; 96360; 96361; 96365; 96374; 96375; 96376; 99284; J0696; J2405; J3010

== ENCOUNTER → 2018-07-07 | Emergency (ER) | payer MEDICARE ==
[~2018-07-07] MED LIST: BABY ASPIRIN 81 MG CHEW ONE; BABY ASPIRIN 81 MG CHEW PO ONE; DUONEB 0.5-3 MG/3 ml Neb IH ONE; Lasix 40 MG/4 ML IV ONE; Lasix 40 MG/4 ML ONE; Sodium Chloride 0.9% 1000 ML 1,000 ML IV SCH
--- NOTE | 2018-07-07 11:49 | ERPHSYRPT ---
- History of Present Illness Time Seen by Provider: 07/07/18 11:36 Source: patient Exam Limitations: no limitations Patient Subjective Stated Complaint: sent here from [facility]. has had a cough x 2 weeks and vomiting starting yesterday.. has had intermittent fever. lungs congested. states her sugaras have been up and down. Triage Nursing Assessment: alert and coughing. sent from [facility] for a cough and fever. started vomiting yesterday.. states sugars have been up and down. lungs congested .. non productive cough. Physician History: 33-year-old white female with history of migraines, seizures, stroke, hyperlipidemia, high blood pressure, congestive heart failure, pneumonia, PE, diabetes type 1 Patient is sent from [facility] patient apparently has been having a cough shortness of breath symptoms for about 2 weeks last night she began to have vomiting last night she states she aches all over she presented to [facility] and was initially evaluated patient had a chest x-ray which showed diffuse interstitial alveolar opacity right middle lobe atelectasis. Patient had blood work drawn which showed an elevated white count of 25,000 hemoglobin 12.5 hematocrit 36.9. She was also noted to have a chemistry which showed sodium 135 potassium 5.8 chloride 100 bicarbonate 27 BUN 29 creatinine 1.81 glucose 151. Patient was also noted to have a BNP of 21,000. Patient was given a gram of Rocephin and sent to the emergency room for further evaluation. Patient states that she has been short of breath with the cough symptoms for 2 weeks she had nausea since last night she states she has been aching all over. Past medical history includes migraines, seizure, strokes, hyperlipidemia, high blood pressure, congestive heart failure, pneumonia, pulmonary embolism, diabetes type 1, fibromyalgia, GERD, anxiety, depression, lupus, patient with a clotting disorder which she does not know which type. Past surgical history includes tubal ligation and esophageal stretch, Social history patient denies tobacco alcohol or illicit drug use, Timing/Duration: week(s) (cough and shortness of breath for 2 weeks, achings all over and nause since last night) Severity: moderate Associated Symptoms: nausea, vomiting, shortness of breath, cough, malaise, No abdominal pain, No heartburn, No diaphoresis, No chills, No chest pain, No fever , No headaches, No loss of appetite, No rash, No syncope, No seizure, No weakness Allergies/Adverse Reactions: latex Allergy (Intermediate, Verified 11/02/16 23:26) Iodinated Contrast- Oral and IV Dye [Iodinated Contrast Media - IV Dye] Allergy (Verified 11/02/16 23:26) morphine Allergy (Verified 11/02/16 23:26) Home Medications: Levetiracetam [Keppra] 750 mg PO BID 02/15/14 [History] Losartan Potassium 100 mg PO DAILY 02/15/14 [History] Docusate Sodium 100 mg [Colace 100 MG] 100 mg PO BID 08/30/15 [History] Fluticasone Propionate [Flonase NASAL] 16 gm NS DAILY 08/30/15 [History] Sumatriptan Succinate 25 mg [Imitrex 25 MG] 25 mg PO Q8H PRN PRN 08/30/15 [ History] Topiramate [Topamax] 50 mg PO BID 08/30/15 [History] Aspirin 81 gm Chew [Baby Aspirin 81 mg Chew] 81 mg PO DAILY 03/17/16 [ History] Atorvastatin Calcium 40 mg PO DAILY 03/17/16 [History] Hydrochlorothiazide 25 mg [hydroDIURIL 25 MG] 25 mg PO DAILY 03/17/16 [ History] PANTOPRAZOLE 40 mg Tablet [Protonix 40MG Tablet] 40 mg PO DAILY 03/17/16 [ History] Hydrocodone Bit/Acetaminophen [Hydrocodon-Acetaminophen 5-325] 1 each PO Q4HPRN PRN 07/05/16 [History] Ferrous Sulfate 325 mg PO TID 08/13/16 [History] Mirtazapine 30 mg [Remeron 30 mg] 30 mg PO HS 08/13/16 [History] Olanzapine 2.5 mg PO HS 08/13/16 [History] Polyethylene Glycol 3350 17 gm [Miralax Powder 17GM PACKET] 17 gm PO DAILY [History] Warfarin Sodium 6 mg PO DAILY 08/13/16 [History] Hx Tetanus, Diphtheria Vaccination/Date Given: Yes Hx Influenza Vaccination/Date Given: Yes Hx Pneumococcal Vaccination/Date Given: No Immunizations Up to Date: Yes - Review of Systems Constitutional: Weakness, No Fever, No Chills Eyes: No Symptoms Ears, Nose, & Throat: No Symptoms Respiratory: Cough, Dyspnea Cardiac: No Chest Pain, No Edema, No Syncope Abdominal/Gastrointestinal: Nausea, Vomiting, No No Symptoms, No Diarrhea, No Constipation, No Hematemesis, No Hematochezia, No Melena, No Dysphagia Genitourinary Symptoms: No Dysuria Musculoskeletal: Myalgias, No Back Pain, No Neck Pain Skin: No Rash Neurological: No Dizziness, No Focal Weakness, No Sensory Changes Psychological: No Symptoms Endocrine: No Symptoms All Other Systems: Reviewed and Negative - Past Medical History Pertinent Past Medical History: Yes Neurological History: Migraines, Seizures, Stroke ENT History: No Pertinent History Cardiac History: High Cholesterol, Hypertension Respiratory History: CHF, Pneumonia, Pulmonary Embolism Endocrine Medical History: Diabetes Type I Musculoskeletal History: No Pertinent History, Fibromyalgia GI Medical History: No Pertinent History, GERD History: No Pertinent History Psycho-Social History: Anxiety, Depression Female Reproductive Disorders: No Pertinent History Other Medical History: lupus-clotting disorder - Past Surgical History Past Surgical History: Yes Neuro Surgical History: No Pertinent History Cardiac: No Pertinent History Respiratory: No Pertinent History Gastrointestinal: No Pertinent History Genitourinary: No Pertinent History Musculoskeletal: No Pertinent History Female Surgical History: Tubal Ligation Other Surgical History: esophagus stretched, per pt - Social History Smoking Status: Never smoker Exposure to second hand smoke: No Drug Use: none Patient Lives Alone: No - Female History Hx Now: No - Nursing Vital Signs Nursing Vital Signs: Initial Vital Signs Temperature 99.1 F 07/07/18 11:18 Pulse Rate 98 H 07/07/18 11:18 Respiratory Rate 20 07/07/18 11:18 Blood Pressure 178/108 07/07/18 11:18 O2 Sat by Pulse Oximetry 96 07/07/18 11:18 Pain Scale Pain Intensity 3 - Physical Exam General Appearance: mild distress, alert Eye Exam: PERRL/EOMI, eyes nml inspection Ears, Nose, Throat Exam: normal ENT inspection, TMs normal, pharynx normal, moist mucous membranes Neck Exam: normal inspection, non-tender, supple, full range of motion Respiratory Exam: diminished breath sounds, rhonchi Cardiovascular Exam: regular rate/rhythm, normal heart sounds, normal peripheral pulses, edema (1-2+ lower extremity edema) Gastrointestinal/Abdomen Exam: soft, normal bowel sounds, No tenderness, No mass Back Exam: normal inspection, normal range of motion, No CVA tenderness, No vertebral tenderness Extremity Exam: normal inspection, normal range of motion, pelvis stable Neurologic Exam: alert, oriented x 3, cooperative, radio operator II-XII nml as tested, normal mood/affect, nml cerebellar function, nml station & gait, sensation nml, No motor deficits Skin Exam: normal color, warm, dry, No rash SpO2 Interpretation: normal (96%) SpO2: 96 - Course EKG Interpreted by Me: RATE (95 bpm), Sinus Rhythm, Right [place] Deviation, Other (EKG: Sinus rhythm, 95 bpm, right axis deviation, no acute ST or T wave changes, compared to August 13, 2016) Ordered Tests: Active Orders 24 hr Category Date Time Status EKG-ER Only STAT Care 07/07/18 11:28 Active IV Insertion STAT Care 07/07/18 11:28 Active BLOOD CULTURE Stat Lab 07/07/18 11:50 Received CULTURE,SPUTUM Stat Lab 07/07/18 11:28 Uncollected HCG, Quantitative (Inhouse) Stat Lab 07/07/18 11:30 Completed Lactic Acid Stat Lab 07/07/18 11:55 Completed TROPONIN Q3H Lab 07/07/18 11:40 Completed TROPONIN Q3H Lab 07/07/18 15:00 Ordered TROPONIN Q3H Lab 07/07/18 18:00 Ordered TROPONIN Q3H Lab 07/07/18 21:00 Ordered TROPONIN Q3H Lab 07/08/18 00:00 Ordered VENOUS BLOOD GAS Stat Lab 07/07/18 11:55 Completed Peak Expiratory Flow Rate ONCE RT 07/07/18 11:52 Active Respiratory Nebulizer STAT RT 07/07/18 11:43 Completed Respiratory Therapy Assessment DAILY RT 07/07/18 11:52 Active Medication Summary Generic Name Dose Route Start Last Admin Trade Name Freq PRN Reason Stop Dose Admin Sodium Chloride 1,000 mls @ 100 mls/hr 07/07/18 11:30 07/07/18 11:43 Sodium Chloride 0.9% 1000 Ml IV 08/06/18 11:29 100 mls/hr .Q10H NEIL Administration Discontinued Medications Generic Name Dose Route Start Last Admin Trade Name Freq PRN Reason Stop Dose Admin Albuterol/Ipratropium 3 ml 07/07/18 11:42 07/07/18 11:49 Duoneb 0.5-3 Mg/3 Ml Neb IH 07/07/18 11:43 3 ml STAT ONE Administration Albuterol/Ipratropium Confirm 07/07/18 11:48 Duoneb 0.5-3 Mg/3 Ml Neb Administered 07/07/18 11:49 Dose 3 ml IH .STK-MED ONE Aspirin 81 mg 07/07/18 13:26 07/07/18 13:29 Baby Aspirin 81 Mg Chew PO 07/07/18 13:27 81 mg STAT ONE Administration Aspirin Confirm 07/07/18 13:28 Baby Aspirin 81 Mg Chew Administered 07/07/18 13:29 Dose 81 mg .ROUTE .STK-MED ONE Furosemide 40 mg 07/07/18 11:42 07/07/18 11:54 Lasix 40 Mg/4 Ml IV 07/07/18 11:43 40 mg STAT ONE Administration Furosemide Confirm 07/07/18 11:53 Lasix 40 Mg/4 Ml Administered 07/07/18 11:54 Dose 40 mg .ROUTE .STK-MED ONE Lab/Rad Data: Laboratory Results 07/07/18 07/07/18 07/07/18 Range/Units 11:55 11:40 11:30 pO2/FiO2 Ratio 21.0 % VBG pH 7.44 H (7.32-7.42) VBG pCO2 at Pat Temp 44 (42-55) mm/Hg VBG pO2 at Pat Temp 16 L (25-40) mm/Hg VBG HCO3 29.9 H* (22-28) meq/L VBG O2 Sat (Briana) 54.1 L (95-100) VBG Base Excess 5.0 H (-2.0-2.0) VBG Hemoglobin 12.9 VBG Carboxyhemoglobin 2.8 (0.0-6.9) % T HGB POC Potassium 7.7 H* (3.5-5.1) Lactic Acid 1.8 (0.4-2.0) Troponin I 0.237 H* (0.000-0.034) ng/mL Beta HCG, Quant < 2.39 mIU/ml - Progress Progress: improved Progress Note: 07/07/18 11:50 33-year-old white female who is sent from [facility]. Patient has been having a cough for 2 weeks she's been short of breath for 2 weeks yesterday she started having nausea vomiting and diffuse aching. Patient initially seen at [facility] labs including CBC CMP and BNP are obtained at [facility] chest x-ray looks O cane which was remarkable for diffuse interstitial alveolar opacity and a new right middle lobe atelectasis. Patient's has labs from [facility] which show a white count of 25 hemoglobin 11.5 hematocrit 36.9 platelets 419. Patient with a chemistry which shows sodium 135 potassium 5.8 chloride 100 bicarbonate 27 BUN 29 creatinine 1.81 glucose 151 Patient with an elevated BNP of 21,000 Patient's AST is 33-year-old T is 29 Influenza was essentially negative. On arrival arrival to the emergency room patient appears to be stable she is coughing quite frequently. When I listened to her lungs lungs are diminished with frequent rhonchi. She has 1-2+ edema in the lower extremities. Patient does have a history of migraines, seizures, stroke, hyperlipidemia, high blood pressure, congestive heart failure, pneumonia, pulmonary embolism, diabetes, fibromyalgia she also has lupus and a clotting disorder. She states she is on Elequis. I have gone ahead and asked for a venous blood gas and a lactate for this patient as well as blood cultures will also place the order for troponin. I've also ordered Lasix 40 mg IV as well as DuoNeb treatment. 07/07/18 12:06 patient alerted for sepsis however patient does not appear to be s she is afebrile she has good perfusion pulse ox is 99% lactate is 1.8. She did however have diffuse alveolar opaciti on her chest x-ray as well as a white count of 25,000 Patient has already received Rocephin through [facility] and physical examinatio as well as chest x-ray findings and BNP are concerning for CHF. Therefore no fluid bolus. 07/07/18 13:27 Patient is given albuterol treatment, also Lasix 40 mg IV. She states she is having some heaviness in her chest. Patient's EKG remarkable for sinus rhythm 99 bpm normal axis no acute ST or T wave changes Patient's troponin is elevated at 0.237 Patient does have a history of renal problems and has a GFR of 33.8 Patient also with a potassium of 5.8 here in the emergency room. Expect this will calm down with Lasix 40 mg IV which has been given. Patient does show diffuse interstitial alveolar opacities in her lungs with new right middle lobe atelectasis Patient is on Elaquis 5 mg twice a day have ordered for aspirin 81 mg orally Will contact [place]'s one call patient's corn cutter operator is Dr. Louise Johansen in [place]. I contacted Dr. Annamarie Garcia, corn cutter operator labor economist for Dr. Conde,he patient' s corn cutter operator. I have explained the patient's clinical presentation course with Dr. Garcia. She states that she will accept the patient to the [facility] in [place]. : Impression Shortness of breath. Pneumonia. CHF. Chest pain. Increased troponin. - Departure Time of Disposition: 13:39 Departure Disposition: Transfer ([address] [facility]) Clinical Impression: increased troponin CHF (congestive heart failure) Qualifiers: Heart failure type: unspecified Heart failure chronicity: acute Qualified Code( s): I50.9 - Heart failure, unspecified COPD (chronic obstructive pulmonary disease) Qualifiers: COPD type: unspecified COPD Qualified Code(s): J44.9 - Chronic obstructive pulmonary disease, unspecified Pneumonia Qualifiers: Pneumonia type: due to unspecified organism Laterality: bilateral Lung location : unspecified part of lung Qualified Code(s): J18.9 - Pneumonia, unspecified organism Chest pain Qualifiers: Chest pain type: unspecified Qualified Code(s): R07.9 - Chest pain, unspecified Condition: Fair Critical Care Time: No Referrals: GREGORY PAYNE [Primary Care Provider] - Instructions: Heart Failure, Chronic Obstructive Pulmonary Disease
[2018-07-07 12:01] LABS: Lactic Acid 1.8 (0.4-2.0); VBG CARBOXYHEMOGLOBIN 2.8 % T HGB (0.0-6.9); VBG HCO3- 29.9 meq/L (22-28); VBG HEMOGLOBIN 12.9; VBG O2 SATURATION 54.1 (95-100); VBG POTASSIUM 7.7 (3.5-5.1); VBG pH 7.44 (7.32-7.42)
[2018-07-07 13:55] VITALS: BP 166/100; PULSE 100
[2018-07-07 14:37] VITALS: O2SAT 96
== END ==
LOC: ED 11:09
DX: R74.8 Abnormal levels of other serum enzymes (principal); I50.9 Heart failure, unspecified; J44.9 Chronic obstructive pulmonary disease, unspecified; J18.9 Pneumonia, unspecified organism; R07.9 Chest pain, unspecified; R06.02 Shortness of breath; I10 Essential (primary) hypertension; G40.909 Epilepsy, unspecified, not intractable, without status epilepticus; E78.00 Pure hypercholesterolemia, unspecified; E78.5 Hyperlipidemia, unspecified; E10.9 Type 1 diabetes mellitus without complications; Z86.711 Personal history of pulmonary embolism; K21.9 Gastro-esophageal reflux disease without esophagitis; M79.7 Fibromyalgia; F41.8 Other specified anxiety disorders; Z79.899 Other long term (current) drug therapy
CPT/HCPCS: 36000; 36415; 82805; 83605; 84484; 84702; 87040; 93005; 94150; 94640; 96374; 99285; J1940; A9270-GY

== ENCOUNTER 2018-08-11 10:06 | Day surgery (SDC) | payer MEDICARE ==
[2018-08-11] MEDS ORDERED: DIPRIVAN 200 MG/20 ML IV ONE (10:07)
[2018-08-11] MEDS ORDERED: Xylocaine 1% Vial 30 ML PF IJ ONE (10:07)
[2018-08-11] MEDS ORDERED: Depo-Medrol 40 MG/ML IM ONE (10:07)
[2018-08-11] MEDS ORDERED: Ketamine HCl 50 MG/ML IV ONE (10:07)
[2018-08-11] MEDS ORDERED: BENADRYL 50 MG/ML IJ ONE (10:07)
[2018-08-11] MEDS ORDERED: Sodium Chloride 0.9(Preservative Free) 10 ML IJ ONE (10:07)
[2018-08-11] MEDS ORDERED: BENADRYL 50 MG/ML ONE (11:33)
--- NOTE | 2018-08-11 13:26 | XRAY ---
Indication: L4-S1 DEYSI. Intraoperative fluoroscopy was provided for 55 seconds. 4 digital spot images submitted for interpretation demonstrates posterior needle tips projecting over the expected course of the left and right L4-L5 nerve roots. Small amount of contrast injected for needle tip placement. Correlate with intraoperative findings/report.
--- NOTE | 2018-08-11 13:29 | XRAY ---
55 seconds fluoroscopy time in surgery for L4-S1 DEYSI.
[2018-08-11] MEDS ORDERED: Lactated Ringers 1,000 ML IV ONE (14:28)
== END 2018-08-11 12:13 | disposition home or self-care (01) ==
LOC: SDC-PAIN 10:06
PROVIDERS: ATTEND Psychiatry & Neurology Pain Medicine
DX: M46.96 Unspecified inflammatory spondylopathy, lumbar region (principal); M54.16 Radiculopathy, lumbar region; I10 Essential (primary) hypertension; E11.9 Type 2 diabetes mellitus without complications; D68.62 Lupus anticoagulant syndrome; N18.3 Chronic kidney disease, stage 3 (moderate); Z86.711 Personal history of pulmonary embolism; Z79.01 Long term (current) use of anticoagulants
CPT/HCPCS: 72100; 77003; J1030; J1200; J2001; J2704

== ENCOUNTER 2018-09-08 13:12 | Emergency (ER) | payer MEDICARE ==
[2018-09-08 13:37] VITALS: BP 142/96; PULSE 84; O2SAT 98
--- NOTE | 2018-09-08 13:43 | ERPHSYRPT ---
- History of Present Illness Time Seen by Provider: 09/08/18 13:30 Source: patient Exam Limitations: no limitations Patient Subjective Stated Complaint: cut left foot on register and it has developed into a pressure ulcer on her left heel and another small sore is beginning on the ankle Triage Nursing Assessment: Pt c/o of left foot heel pain due to cutting it on a register and it has continued to get infected despite her continual cleaning and tending to it, 2.5cm X 2.5 cm pressure ulcer to the left heel, 1 x 1 cm to wound to the left lateral ankle, vitals wnl, denies pain Physician History: 33 y/o diabetic white female presents with 3 week left foot wound/ulcer after injurying it on a metal vaz[employer] register. no tx since that time. wound worsening. denies sig pain and denies fever. pt has a h/o mrsa. Method of Injury: other (cut on metal vazquez register 3 weeks ago.) Occurred: other (3 weeks ago) Severity of Pain-Max: mild Severity of Pain-Current: mild Lower Extremities Pain: heel: left Modifying Factors: Improves With: nothing Associated Symptoms: none Allergies/Adverse Reactions: latex Allergy (Intermediate, Verified 11/02/16 23:26) Iodinated Contrast- Oral and IV Dye [Iodinated Contrast Media - IV Dye] Allergy (Verified 09/08/18 13:37) morphine Allergy (Verified 11/02/16 23:26) Home Medications: Levetiracetam [Keppra] 750 mg PO BID 02/15/14 [History] Losartan Potassium 100 mg PO DAILY 02/15/14 [History] Docusate Sodium 100 mg [Colace 100 MG] 100 mg PO BID 08/30/15 [History] Fluticasone Propionate [Flonase NASAL] 16 gm NS DAILY 08/30/15 [History] Sumatriptan Succinate 25 mg [Imitrex 25 MG] 25 mg PO Q8H PRN PRN 08/30/15 [ History] Topiramate [Topamax] 50 mg PO BID 08/30/15 [History] Aspirin 81 gm Chew [Baby Aspirin 81 mg Chew] 81 mg PO DAILY 03/17/16 [ History] Atorvastatin Calcium 40 mg PO DAILY 03/17/16 [History] Hydrochlorothiazide 25 mg [hydroDIURIL 25 MG] 25 mg PO DAILY 03/17/16 [ History] PANTOPRAZOLE 40 mg Tablet [Protonix 40MG Tablet] 40 mg PO DAILY 03/17/16 [ History] Hydrocodone Bit/Acetaminophen [Hydrocodon-Acetaminophen 5-325] 1 each PO Q4HPRN PRN 07/05/16 [History] Ferrous Sulfate 325 mg PO TID 08/13/16 [History] Mirtazapine 30 mg [Remeron 30 mg] 30 mg PO HS 08/13/16 [History] Olanzapine 2.5 mg PO HS 08/13/16 [History] Polyethylene Glycol 3350 17 gm [Miralax Powder 17GM PACKET] 17 gm PO DAILY [History] Warfarin Sodium 6 mg PO DAILY 08/13/16 [History] Hx Tetanus, Diphtheria Vaccination/Date Given: Yes Hx Influenza Vaccination/Date Given: Yes Hx Pneumococcal Vaccination/Date Given: No - Review of Systems Constitutional: No Symptoms Eyes: No Symptoms Ears, Nose, & Throat: No Symptoms Respiratory: No Symptoms Cardiac: No Symptoms Abdominal/Gastrointestinal: No Symptoms Genitourinary Symptoms: No Symptoms Musculoskeletal: No Symptoms Skin: Other (left heel wound/ulcer) Neurological: No Symptoms Psychological: No Symptoms Endocrine: No Symptoms Hematologic/Lymphatic: No Symptoms Immunological/Allergic: No Symptoms All Other Systems: Reviewed and Negative - Past Medical History Pertinent Past Medical History: Yes Neurological History: Epilepsy, Seizures ENT History: No Pertinent History Cardiac History: Congestive Heart Failure, Hypertension Respiratory History: Asthma, CHF Endocrine Medical History: Adrenal Insufficiency, Diabetes Type I Musculoskeletal History: Fibromyalgia, Osteoarthritis, Other GI Medical History: No Pertinent History, GERD History: No Pertinent History Psycho-Social History: Anxiety, Depression Female Reproductive Disorders: No Pertinent History Other Medical History: Pt has epileptic seizures and pseuodseizures. Stage 3-4 kidney failure. Pt has been referred to a [employer] [facility], Lupus anti-coagulant disorder. - Past Surgical History Past Surgical History: Yes Neuro Surgical History: No Pertinent History Cardiac: No Pertinent History Respiratory: No Pertinent History Gastrointestinal: No Pertinent History Genitourinary: No Pertinent History Musculoskeletal: No Pertinent History Female Surgical History: Tubal Ligation Other Surgical History: esophagus stretched, per pt - Social History Smoking Status: Never smoker Exposure to second hand smoke: No Drug Use: none Patient Lives Alone: No - Female History Hx Now: No (tubal) - Nursing Vital Signs Nursing Vital Signs: Initial Vital Signs Temperature 98.4 F 09/08/18 13:23 Pulse Rate 84 09/08/18 13:23 Blood Pressure 142/96 09/08/18 13:23 O2 Sat by Pulse Oximetry 98 09/08/18 13:23 Pain Scale Pain Intensity 0 - Physical Exam General Appearance: no apparent distress, alert, anxiety Eyes, Ears, Nose, Throat Exam: normal ENT inspection, moist mucous membranes Neck Exam: normal inspection, non-tender, supple, full range of motion Cardiovascular/Respiratory Exam: chest non-tender, normal breath sounds, regular rate/rhythm Gastrointestinal/Abdominal Exam: non-tender, soft Back Exam: normal inspection, normal range of motion, No CVA tenderness, No vertebral tenderness Hips Exam: bilateral: non-tender, normal inspection, normal range of motion, no evidence of injury Legs Exam: bilateral leg: non-tender, normal inspection, normal range of motion , no evidence of injury Knees Exam: bilateral knee: non-tender, normal inspection, normal range of motion, no evidence of injury Ankle Exam: bilateral ankle: non-tender, normal inspection, normal range of motion, no evidence of injury Foot Exam: right foot: non-tender, normal inspection, normal range of motion, no evidence of injury, left foot: swelling, other (left heel with open ulcer and wound with fibrinous exudate present. no prox streaking and no odor) Neuro/Tendon Exam: no evidence tendon injury, sensory deficit, No motor deficit , No tendon function deficit, No tendon injury visualized Mental Status Exam: alert, oriented x 3, cooperative Skin Exam: other (open wound as described above.) SpO2: 98 O2 Delivery: Room Air - Course Nursing assessment & vital signs reviewed: Yes Ordered Tests: Active Orders 24 hr Category Date Time Status CULTURE,WOUND Stat Lab 09/08/18 13:58 Received Medication Summary Discontinued Medications Generic Name Dose Route Start Last Admin Trade Name Freq PRN Reason Stop Dose Admin Ceftriaxone Sodium 1,000 mg 09/08/18 13:52 09/08/18 14:10 Rocephin 1000 Mg Inj IM 09/08/18 13:53 1,000 mg STAT ONE Administration Ceftriaxone Sodium Confirm 09/08/18 14:04 Rocephin 1000 Mg Inj Administered 09/08/18 14:05 Dose 1,000 mg .ROUTE .STK-MED ONE Lidocaine HCl Confirm 09/08/18 14:05 Xylocaine 1% Hcl 20 Ml Mdv Administered 09/08/18 14:06 Dose 3 ml .ROUTE .STK-MED ONE Trimethoprim/Sulfamethoxazole 1 tab 09/08/18 13:53 09/08/18 14:10 Bactrim Ds Tablet PO 09/08/18 13:54 1 tab STAT ONE Administration Trimethoprim/Sulfamethoxazole Confirm 09/08/18 14:04 Bactrim Ds Tablet Administered 09/08/18 14:05 Dose 1 tab PO .STK-MED ONE - Progress Progress: unchanged Counseled pt/family regarding: diagnosis, need for follow-up - Departure Departure Disposition: Home Clinical Impression: Diabetic foot infection Condition: Stable Critical Care Time: No Referrals: GREGORY PAYNE [Primary Care Provider] - Additional Instructions: you must wash and scrub heel wound 2 times daily with antibacterial soap and wash cloth. cover wound with nonlatex bandage and wrap with patrice wrap. follow up with your primary doctor tomorrow 09/09/18, for further management including referral to a wound care center. Prescriptions: Smz/Tmp Ds Tablet [Bactrim Ds Tablet] 1 udtab PO BID #14 tablet
[2018-09-08] MEDS ORDERED: Rocephin 1000 MG INJ IM ONE (13:52)
[2018-09-08] MEDS ORDERED: BACTRIM DS TABLET PO ONE ×2 (13:53→14:04)
[2018-09-08] MEDS ORDERED: Rocephin 1000 MG INJ ONE (14:04)
[2018-09-08] MEDS ORDERED: XYLOCAINE 1% HCL 20 ML MDV ONE (14:05)
== END 2018-09-08 14:57 | disposition home or self-care (01) ==
LOC: ED 13:12
DX: E10.69 Type 1 diabetes mellitus with other specified complication (principal); E10.621 Type 1 diabetes mellitus with foot ulcer; L97.429 Non-pressure chronic ulcer of left heel and midfoot with unspecified severity; L08.9 Local infection of the skin and subcutaneous tissue, unspecified; I50.9 Heart failure, unspecified; G40.909 Epilepsy, unspecified, not intractable, without status epilepticus; J45.909 Unspecified asthma, uncomplicated; M79.7 Fibromyalgia; M19.90 Unspecified osteoarthritis, unspecified site; K21.9 Gastro-esophageal reflux disease without esophagitis; F41.8 Other specified anxiety disorders; I12.9 Hypertensive chronic kidney disease with stage 1 through stage 4 chronic kidney disease, or unspecified chronic kidney disease; N18.4 Chronic kidney disease, stage 4 (severe)
CPT/HCPCS: 87070; 87077; 87186; 96372; 99284; J0696; A9270-GY

== ENCOUNTER 2018-11-01 13:08 | Emergency (ER) | payer MEDICARE ==
--- NOTE | 2018-11-01 13:20 | ERPHSYRPT ---
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 pt called ems for vomiting of blood. pt has picc line for outpt iv tx of osteomyelitis/diabetic foot infection. pt discharged to home one week ago from [address] pt had renal dialysis on 2 occasions in the recent past. pts sbp in the 80's on arrival to ED. pt is on eliquis Timing/Duration: today Severity: severe Associated Symptoms: nausea, vomiting (blood), malaise, weakness Allergies/Adverse Reactions: latex Allergy (Intermediate, Verified 11/01/18 13:46) Iodinated Contrast- Oral and IV Dye [Iodinated Contrast Media - IV Dye] Allergy (Verified 11/01/18 13:46) morphine Allergy (Verified 11/01/18 13:46) Home Medications: Levetiracetam [Keppra] 750 mg PO BID 02/15/14 [History] Losartan Potassium 100 mg PO DAILY 02/15/14 [History] Docusate Sodium 100 mg [Colace 100 MG] 100 mg PO BID 08/30/15 [History] Fluticasone Propionate [Flonase NASAL] 16 gm NS DAILY 08/30/15 [History] Sumatriptan Succinate 25 mg [Imitrex 25 MG] 25 mg PO Q8H PRN PRN 08/30/15 [ History] Topiramate [Topamax] 50 mg PO BID 08/30/15 [History] Aspirin 81 gm Chew [Baby Aspirin 81 mg Chew] 81 mg PO DAILY 03/17/16 [ History] Atorvastatin Calcium 40 mg PO DAILY 03/17/16 [History] Hydrochlorothiazide 25 mg [hydroDIURIL 25 MG] 25 mg PO DAILY 03/17/16 [ History] PANTOPRAZOLE 40 mg Tablet [Protonix 40MG Tablet] 40 mg PO DAILY 03/17/16 [ History] Hydrocodone Bit/Acetaminophen [Hydrocodon-Acetaminophen 5-325] 1 each PO Q4HPRN PRN 07/05/16 [History] Ferrous Sulfate 325 mg PO TID 08/13/16 [History] Mirtazapine 30 mg [Remeron 30 mg] 30 mg PO HS 08/13/16 [History] Olanzapine 2.5 mg PO HS 08/13/16 [History] Polyethylene Glycol 3350 17 gm [Miralax Powder 17GM PACKET] 17 gm PO DAILY [History] Warfarin Sodium 6 mg PO DAILY 08/13/16 [History] Hx Tetanus, Diphtheria Vaccination/Date Given: Yes Hx Influenza Vaccination/Date Given: Yes Hx Pneumococcal Vaccination/Date Given: No - Review of Systems Constitutional: Fatigue, Malaise, Weakness Eyes: No Symptoms Ears, Nose, & Throat: No Symptoms Respiratory: Dyspnea Cardiac: No Symptoms Abdominal/Gastrointestinal: Nausea, Vomiting, Hematemesis, No Abdominal Pain, No Diarrhea Genitourinary Symptoms: No Symptoms Musculoskeletal: No Symptoms Skin: Cellulitis (left foot), Other (pale) Neurological: Lethargy Psychological: No Symptoms Endocrine: No Symptoms Hematologic/Lymphatic: No Symptoms, Other (pt on eliquis) Immunological/Allergic: No Symptoms All Other Systems: Reviewed and Negative - Past Medical History Pertinent Past Medical History: Yes Neurological History: Epilepsy, Seizures ENT History: No Pertinent History Cardiac History: Congestive Heart Failure, Hypertension Respiratory History: Asthma, CHF Endocrine Medical History: Adrenal Insufficiency, Diabetes Type I Musculoskeletal History: Fibromyalgia, Osteoarthritis, Other GI Medical History: No Pertinent History, GERD History: No Pertinent History Psycho-Social History: Anxiety, Depression Female Reproductive Disorders: No Pertinent History Other Medical History: Pt has epileptic seizures and pseuodseizures. Stage 3-4 kidney failure. 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 - Past Surgical History Past Surgical History: Yes Neuro Surgical History: No Pertinent History Cardiac: No Pertinent History Respiratory: No Pertinent History Gastrointestinal: No Pertinent History Genitourinary: No Pertinent History Musculoskeletal: No Pertinent History Female Surgical History: Tubal Ligation Other Surgical History: esophagus stretched, per pt - Social History Smoking Status: Never smoker Exposure to second hand smoke: No Drug Use: none Patient Lives Alone: No - Nursing Vital Signs Nursing Vital Signs: Initial Vital Signs Temperature 96.1 F 11/01/18 13:10 Pulse Rate 61 11/01/18 13:10 Respiratory Rate 26 H 11/01/18 13:10 Blood Pressure 83/63 11/01/18 13:10 O2 Sat by Pulse Oximetry 92 L 11/01/18 13:10 Pain Scale Pain Intensity 10 - Physical Exam General Appearance: moderate distress, lethargy, obese Eye Exam: PERRL/EOMI, pale conjunctivae Ears, Nose, Throat Exam: dry mucous membranes Neck Exam: normal inspection, non-tender, supple, full range of motion Respiratory Exam: normal breath sounds, airway intact, wheezing (mild bilat diffuse), No chest tenderness, No respiratory distress, No accessory muscle use , No rhonchi Cardiovascular Exam: regular rate/rhythm, normal heart sounds, normal peripheral pulses Gastrointestinal/Abdomen Exam: soft, normal bowel sounds, tenderness (diffuse mild), No guarding, No rebound Pelvic Exam: not done Rectal Exam: not done Back Exam: normal inspection, normal range of motion, No CVA tenderness, No vertebral tenderness Extremity Exam: normal inspection, normal range of motion, pelvis stable, other (left foot with swelling and bandage in place.) Neurologic Exam: oriented x 3, cooperative, 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 tested Skin Exam: dry, pale Lymphatic Exam: No adenopathy SpO2 Interpretation: hypoxic O2 Delivery: Room Air Procedures - Intubation Intubation Indications: cardiac arrest, respiratory arrest, respiratory distress Intubation Method: orotracheal, curved blade, glidescope Tube Size (cm): 7.0 Medications: Diazepam (Valium), Rocuronium Endotracheal Tube Confirmation: bilateral breath sounds, positive end tidal CO2 Intubation Complications: vomited (blood) Performed By: Other (both by physician and Sary RT) Post Intubation Xray: Yes Progress/X-ray Impression: 11/01/18 21:20 ettub in trachea above henna with bilat opacities and worsening effusions and atelectasis 11/01/18 21:22 - Course Nursing assessment & vital signs reviewed: Yes EKG Interpreted by Me: RATE, Sinus Rhythm, Left Vanderwagen Deviation, NORMAL INTERVALS , NORMAL QRS, Non-specific ST Changes, Other (no acute ischemic changes.) Ordered Tests: Active Orders 24 hr Category Date Time Status EKG-ER Only STAT Care 11/01/18 13:23 Active CHEST 1 VIEW (PORTABLE) Routine Exams 11/01/18 14:33 Completed ABG [ARTERIAL BLOOD GASES] Stat Lab 11/01/18 13:09 Completed ABG [ARTERIAL BLOOD GASES] Urgent Lab 11/01/18 13:05 Completed BLOOD CULTURE Stat Lab 11/01/18 13:00 Received CBC W DIFF Stat Lab 11/01/18 13:12 Completed CMP Stat Lab 11/01/18 13:00 Completed CULTURE,URINE Stat Lab 11/01/18 13:45 Ordered HCG,QUALITATIVE URINE Stat Lab 11/01/18 13:45 Completed HEMOGLOBIN AND HEMATOCRIT Stat Lab 11/01/18 15:48 Completed Lactic Acid Stat Lab 11/01/18 14:36 Completed Lactic Acid Urgent Lab 11/01/18 13:09 Completed PROTIME WITH INR Stat Lab 11/01/18 13:00 Completed UA W/RFX UR CULTURE Stat Lab 11/01/18 13:00 Completed VBG [VENOUS BLOOD GAS] Stat Lab 11/01/18 14:36 Completed VBG [VENOUS BLOOD GAS] Stat Lab 11/01/18 15:45 Completed Standby STAT RT 11/01/18 17:40 Completed Medication Summary Generic Name Dose Route Start Last Admin Trade Name Freq PRN Reason Stop Dose Admin Furosemide 20 mg 11/02/18 13:49 Lasix 20 Mg/2 Ml IV 11/02/18 13:50 STAT ONE Dopamine HCl/Dextrose 250 mls @ 0 mls/hr 11/01/18 13:44 11/01/18 13:54 Dopamine 400 Mg/D5w 250ml Premix IV 12/01/18 13:43 5 mcg/kg/min .Q0M PRN 15.113 mls/hr SEVERE HYPOTENSION Administration Protocol 5 MCG/KG/MIN Discontinued Medications Generic Name Dose Route Start Last Admin Trade Name Freq PRN Reason Stop Dose Admin Amiodarone HCl 450 mg 11/01/18 16:00 Cordarone 150 Mg/3 Ml Injection .ROUTE 11/01/18 16:01 .STK-MED ONE Atropine Sulfate 3 mg 11/01/18 16:00 Atropine Sulfate 1mg Syr Abboject .ROUTE 11/01/18 16:01 .STK-MED ONE Calcium Chloride 1,000 mg 11/01/18 16:00 Calcium Chloride 10% 1000 Mg .ROUTE 11/01/18 16:01 .STK-MED ONE Epinephrine HCl 13 mg 11/01/18 16:00 Epinephrine Abboject 1 Mg .ROUTE 11/01/18 16:01 .STK-MED ONE Furosemide 40 mg 11/01/18 13:47 11/01/18 13:53 Lasix 40 Mg/4 Ml IV 11/01/18 13:48 20 mg STAT ONE Administration Furosemide Confirm 11/01/18 13:49 Lasix 40 Mg/4 Ml Administered 11/01/18 13:50 Dose 40 mg .ROUTE .STK-MED ONE Sodium Chloride Confirm 11/01/18 13:23 Sodium Chloride 0.9% 1000 Ml Administered 11/01/18 13:24 Dose 1,000 mls @ ud .ROUTE .STK-MED ONE Sodium Chloride 1,000 mls @ 999 mls/hr 11/01/18 13:23 11/01/18 13:55 Sodium Chloride 0.9% 1000 Ml IV 11/01/18 14:23 999 mls/hr .Q1H1M STA Administration Sodium Chloride Confirm 11/01/18 14:13 Sodium Chloride 0.9% 1000 Ml Administered 11/01/18 14:14 Dose 1,000 mls @ ud .ROUTE .STK-MED ONE Insulin Human Regular 10 unit 11/01/18 13:46 11/01/18 14:02 Novolin R IV 11/01/18 13:47 10 unit STAT ONE Administration Insulin Human Regular Confirm 11/01/18 13:58 Novolin R Administered 11/01/18 13:59 Dose 10 unit .ROUTE .STK-MED ONE Midazolam HCl 5 mg 11/01/18 16:00 Versed 5 Mg/5 Ml .ROUTE 11/01/18 16:01 .STK-MED ONE Ondansetron HCl 4 mg 11/01/18 13:44 11/01/18 13:54 Zofran 4 Mg/2 Ml Vial IV 11/01/18 13:45 4 mg STAT ONE Administration Ondansetron HCl Confirm 11/01/18 13:48 Zofran 4 Mg/2 Ml Vial Administered 11/01/18 13:49 Dose 4 mg .ROUTE .STK-MED ONE Rocuronium Center 100 mg 11/01/18 16:00 Zemuron 100 Mg/10 Ml .ROUTE 11/01/18 16:01 .STK-MED ONE Sodium Bicarbonate 100 meq 11/01/18 16:00 Sodium Bicarbonate 50 Meq/50 Ml Abboject IV 11/01/18 16:01 .STK-MED ONE Sodium Chloride 2,000 ml 11/01/18 16:00 Sodium Chloride 0.9% 1000 Ml .ROUTE 11/01/18 16:01 .STK-MED ONE Lab/Rad Data: Laboratory Result Diagrams 11/01/18 15:48 11/01/18 13:00 Laboratory Results 11/01/18 11/01/18 11/01/18 Range/Units 15:48 15:45 14:36 WBC (4.0-10.5) K/mm3 RBC (4.1-5.4) M/mm3 Hgb 11.9 L D (12.0-16.0) gm/dl Hct 38.9 (35-47) % MCV (78-100) fl MCH (26-32) pg MCHC (32-36) g/dl RDW (11.5-14.0) % Plt Count (150-450) K/mm3 MPV (6-9.5) fl Gran % (36.0-66.0) % Eos # (Auto) (0-0.5) Absolute Lymphs (auto) (1.0-4.6) Absolute Monos (auto) (0.0-1.3) Lymphocytes % (24.0-44.0) % Monocytes % (0.0-12.0) % Eosinophils % (0.00-5.0) % Basophils % (0.0-0.4) % Absolute Granulocytes (1.4-6.9) Basophils # (0-0.4) PT (9.95-12.35) SECONDS INR (0.8-3.0) Puncture Site pCO2 (35-45) mmHg pO2 (75-100) mmHg pO2/FiO2 Ratio 100.0 % Base Excess (-2.0-2.0) O2 Saturation (94-100) g/dF ABG pH (7.35-7.45) ABG HCO3 (22-28) ABG O2 Sat (Measured) (95-100) % Eliezer Test VBG pH 6.95 L* (7.32-7.42) VBG pCO2 at Pat Temp 74 H* (42-55) mm/Hg VBG pO2 at Pat Temp 23 L (25-40) mm/Hg VBG HCO3 16.3 L* (22-28) meq/L VBG O2 Sat (Briana) 25.5 L (95-100) VBG Base Excess -16.1 L (-2.0-2.0) VBG Hemoglobin 11.0 VBG Carboxyhemoglobin 1.0 (0.0-6.9) % T HGB A-a Gradient a/A Ratio Hemoglobin Carboxyhemoglobin (0.0-6.9) % THgb Methemoglobin (1.4-1.5) % POC Potassium 5.7 H (3.5-5.1) Temperature C POC O2 Flow Rate % Sodium (137-145) mmol/L Potassium (3.5-5.1) mmol/L Chloride (98-107) mmol/L Carbon Dioxide (22-30) mmol/L Anion Gap (5-15) MEQ/L BUN (7-17) mg/dL Creatinine (0.52-1.04) mg/dL Estimated GFR ML/MIN Glucose (74-106) mg/dL Lactic Acid 5.3 H (0.4-2.0) Calcium (8.4-10.2) mg/dL Total Bilirubin (0.2-1.3) mg/dL AST (14-36) U/L ALT (0-35) U/L Alkaline Phosphatase (38-126) U/L Serum Total Protein (6.3-8.2) g/dL Albumin (3.5-5.0) g/dL Urine Color (YELLOW) Urine Appearance (CLEAR) Urine pH (5-6) Ur Specific [place] (1.005-1.025) Urine Protein (Negative) Urine Ketones (NEGATIVE) Urine Blood (0-5) Vamshi/ul Urine Nitrite (NEGATIVE) Urine Bilirubin (NEGATIVE) Urine Urobilinogen (0-1) mg/dL Ur Leukocyte Esterase (NEGATIVE) Urine WBC (Auto) (0-5) /HPF Urine RBC (Auto) (0-2) /HPF U Hyaline Cast (Auto) (0-2) /LPF U Epithel Cells (Auto) (FEW) /HPF Urine Bacteria (Auto) (NEGATIVE) /HPF Urine Culture Reflexed (NO) Urine Glucose (NEGATIVE) mg/dL Urine HCG, Qual (Negative) ABO Group Rh Factor Antibody Screen (NEGATIVE) Crossmatch (COMPATIBLE) 11/01/18 11/01/18 11/01/18 Range/Units 14:36 14:25 14:25 WBC (4.0-10.5) K/mm3 RBC (4.1-5.4) M/mm3 Hgb (12.0-16.0) gm/dl Hct (35-47) % MCV (78-100) fl MCH (26-32) pg MCHC (32-36) g/dl RDW (11.5-14.0) % Plt Count (150-450) K/mm3 MPV (6-9.5) fl Gran % (36.0-66.0) % Eos # (Auto) (0-0.5) Absolute Lymphs (auto) (1.0-4.6) Absolute Monos (auto) (0.0-1.3) Lymphocytes % (24.0-44.0) % Monocytes % (0.0-12.0) % Eosinophils % (0.00-5.0) % Basophils % (0.0-0.4) % Absolute Granulocytes (1.4-6.9) Basophils # (0-0.4) PT (9.95-12.35) SECONDS INR (0.8-3.0) Puncture Site pCO2 (35-45) mmHg pO2 (75-100) mmHg pO2/FiO2 Ratio 100.0 % Base Excess (-2.0-2.0) O2 Saturation (94-100) g/dF ABG pH (7.35-7.45) ABG HCO3 (22-28) ABG O2 Sat (Measured) (95-100) % Eliezer Test VBG pH 7.20 L* (7.32-7.42) VBG pCO2 at Pat Temp 43 (42-55) mm/Hg VBG pO2 at Pat Temp 15 L (25-40) mm/Hg VBG HCO3 16.8 L* (22-28) meq/L VBG O2 Sat (Briana) 14.7 L (95-100) VBG Base Excess -10.5 L (-2.0-2.0) VBG Hemoglobin 7.9 VBG Carboxyhemoglobin 1.6 (0.0-6.9) % T HGB A-a Gradient a/A Ratio Hemoglobin Carboxyhemoglobin (0.0-6.9) % THgb Methemoglobin (1.4-1.5) % POC Potassium 5.9 H (3.5-5.1) Temperature C POC O2 Flow Rate % Sodium (137-145) mmol/L Potassium (3.5-5.1) mmol/L Chloride (98-107) mmol/L Carbon Dioxide (22-30) mmol/L Anion Gap (5-15) MEQ/L BUN (7-17) mg/dL Creatinine (0.52-1.04) mg/dL Estimated GFR ML/MIN Glucose (74-106) mg/dL Lactic Acid (0.4-2.0) Calcium (8.4-10.2) mg/dL Total Bilirubin (0.2-1.3) mg/dL AST (14-36) U/L ALT (0-35) U/L Alkaline Phosphatase (38-126) U/L Serum Total Protein (6.3-8.2) g/dL Albumin (3.5-5.0) g/dL Urine Color (YELLOW) Urine Appearance (CLEAR) Urine pH (5-6) Ur Specific [place] (1.005-1.025) Urine Protein (Negative) Urine Ketones (NEGATIVE) Urine Blood (0-5) Vamshi/ul Urine Nitrite (NEGATIVE) Urine Bilirubin (NEGATIVE) Urine Urobilinogen (0-1) mg/dL Ur Leukocyte Esterase (NEGATIVE) Urine WBC (Auto) (0-5) /HPF Urine RBC (Auto) (0-2) /HPF U Hyaline Cast (Auto) (0-2) /LPF U Epithel Cells (Auto) (FEW) /HPF Urine Bacteria (Auto) (NEGATIVE) /HPF Urine Culture Reflexed (NO) Urine Glucose (NEGATIVE) mg/dL Urine HCG, Qual (Negative) ABO Group Rh Factor Antibody Screen (NEGATIVE) Crossmatch COMPATIBLE COMPATIBLE (COMPATIBLE) 11/01/18 11/01/18 11/01/18 Range/Units 14:25 14:25 13:45 WBC (4.0-10.5) K/mm3 RBC (4.1-5.4) M/mm3 Hgb (12.0-16.0) gm/dl Hct (35-47) % MCV (78-100) fl MCH (26-32) pg MCHC (32-36) g/dl RDW (11.5-14.0) % Plt Count (150-450) K/mm3 MPV (6-9.5) fl Gran % (36.0-66.0) % Eos # (Auto) (0-0.5) Absolute Lymphs (auto) (1.0-4.6) Absolute Monos (auto) (0.0-1.3) Lymphocytes % (24.0-44.0) % Monocytes % (0.0-12.0) % Eosinophils % (0.00-5.0) % Basophils % (0.0-0.4) % Absolute Granulocytes (1.4-6.9) Basophils # (0-0.4) PT (9.95-12.35) SECONDS INR (0.8-3.0) Puncture Site pCO2 (35-45) mmHg pO2 (75-100) mmHg pO2/FiO2 Ratio % Base Excess (-2.0-2.0) O2 Saturation (94-100) g/dF ABG pH (7.35-7.45) ABG HCO3 (22-28) ABG O2 Sat (Measured) (95-100) % Eliezer Test VBG pH (7.32-7.42) VBG pCO2 at Pat Temp (42-55) mm/Hg VBG pO2 at Pat Temp (25-40) mm/Hg VBG HCO3 (22-28) meq/L VBG O2 Sat (Briana) (95-100) VBG Base Excess (-2.0-2.0) VBG Hemoglobin VBG Carboxyhemoglobin (0.0-6.9) % T HGB A-a Gradient a/A Ratio Hemoglobin Carboxyhemoglobin (0.0-6.9) % THgb Methemoglobin (1.4-1.5) % POC Potassium (3.5-5.1) Temperature C POC O2 Flow Rate % Sodium (137-145) mmol/L Potassium (3.5-5.1) mmol/L Chloride (98-107) mmol/L Carbon Dioxide (22-30) mmol/L Anion Gap (5-15) MEQ/L BUN (7-17) mg/dL Creatinine (0.52-1.04) mg/dL Estimated GFR ML/MIN Glucose (74-106) mg/dL Lactic Acid (0.4-2.0) Calcium (8.4-10.2) mg/dL Total Bilirubin (0.2-1.3) mg/dL AST (14-36) U/L ALT (0-35) U/L Alkaline Phosphatase (38-126) U/L Serum Total Protein (6.3-8.2) g/dL Albumin (3.5-5.0) g/dL Urine Color (YELLOW) Urine Appearance (CLEAR) Urine pH (5-6) Ur Specific [place] (1.005-1.025) Urine Protein (Negative) Urine Ketones (NEGATIVE) Urine Blood (0-5) Vamshi/ul Urine Nitrite (NEGATIVE) Urine Bilirubin (NEGATIVE) Urine Urobilinogen (0-1) mg/dL Ur Leukocyte Esterase (NEGATIVE) Urine WBC (Auto) (0-5) /HPF Urine RBC (Auto) (0-2) /HPF U Hyaline Cast (Auto) (0-2) /LPF U Epithel Cells (Auto) (FEW) /HPF Urine Bacteria (Auto) (NEGATIVE) /HPF Urine Culture Reflexed (NO) Urine Glucose (NEGATIVE) mg/dL Urine HCG, Qual NEGATIVE (Negative) ABO Group Rh Factor Antibody Screen (NEGATIVE) Crossmatch COMPATIBLE COMPATIBLE (COMPATIBLE) 11/01/18 11/01/18 11/01/18 Range/Units 13:12 13:09 13:09 WBC 6.9 (4.0-10.5) K/mm3 RBC 2.95 L (4.1-5.4) M/mm3 Hgb 8.0 L (12.0-16.0) gm/dl Hct 25.8 L (35-47) % MCV 87.5 (78-100) fl MCH 27.1 (26-32) pg MCHC 31.0 L (32-36) g/dl RDW 14.7 H (11.5-14.0) % Plt Count 343 (150-450) K/mm3 MPV 11.3 H (6-9.5) fl Gran % 85.7 H (36.0-66.0) % Eos # (Auto) 0.01 (0-0.5) Absolute Lymphs (auto) 0.71 L (1.0-4.6) Absolute Monos (auto) 0.24 (0.0-1.3) Lymphocytes % 10.3 L (24.0-44.0) % Monocytes % 3.5 (0.0-12.0) % Eosinophils % 0.1 (0.00-5.0) % Basophils % 0.4 (0.0-0.4) % Absolute Granulocytes 5.90 (1.4-6.9) Basophils # 0.03 (0-0.4) PT (9.95-12.35) SECONDS INR (0.8-3.0) Puncture Site RIGHT RADIAL pCO2 25 L (35-45) mmHg pO2 44 L* (75-100) mmHg pO2/FiO2 Ratio % Base Excess -6.3 L (-2.0-2.0) O2 Saturation 78.1 L (94-100) g/dF ABG pH 7.44 (7.35-7.45) ABG HCO3 17.0 L (22-28) ABG O2 Sat (Measured) 80.9 L (95-100) % Eliezer Test YES VBG pH (7.32-7.42) VBG pCO2 at Pat Temp (42-55) mm/Hg VBG pO2 at Pat Temp (25-40) mm/Hg VBG HCO3 (22-28) meq/L VBG O2 Sat (Briana) (95-100) VBG Base Excess (-2.0-2.0) VBG Hemoglobin VBG Carboxyhemoglobin (0.0-6.9) % T HGB A-a Gradient 638 a/A Ratio 0.06 Hemoglobin 7.8 L* Carboxyhemoglobin 3.1 (0.0-6.9) % THgb Methemoglobin 0.4 L (1.4-1.5) % POC Potassium (3.5-5.1) Temperature 37.0 C POC O2 Flow Rate 100 % Sodium (137-145) mmol/L Potassium 6.1 H* (3.5-5.1) mmol/L Chloride (98-107) mmol/L Carbon Dioxide (22-30) mmol/L Anion Gap (5-15) MEQ/L BUN (7-17) mg/dL Creatinine (0.52-1.04) mg/dL Estimated GFR ML/MIN Glucose (74-106) mg/dL Lactic Acid 3.4 H (0.4-2.0) Calcium (8.4-10.2) mg/dL Total Bilirubin (0.2-1.3) mg/dL AST (14-36) U/L ALT (0-35) U/L Alkaline Phosphatase (38-126) U/L Serum Total Protein (6.3-8.2) g/dL Albumin (3.5-5.0) g/dL Urine Color (YELLOW) Urine Appearance (CLEAR) Urine pH (5-6) Ur Specific [place] (1.005-1.025) Urine Protein (Negative) Urine Ketones (NEGATIVE) Urine Blood (0-5) Vamshi/ul Urine Nitrite (NEGATIVE) Urine Bilirubin (NEGATIVE) Urine Urobilinogen (0-1) mg/dL Ur Leukocyte Esterase (NEGATIVE) Urine WBC (Auto) (0-5) /HPF Urine RBC (Auto) (0-2) /HPF U Hyaline Cast (Auto) (0-2) /LPF U Epithel Cells (Auto) (FEW) /HPF Urine Bacteria (Auto) (NEGATIVE) /HPF Urine Culture Reflexed (NO) Urine Glucose (NEGATIVE) mg/dL Urine HCG, Qual (Negative) ABO Group Rh Factor Antibody Screen (NEGATIVE) Crossmatch (COMPATIBLE) 11/01/18 11/01/18 11/01/18 Range/Units 13:05 13:00 13:00 WBC (4.0-10.5) K/mm3 RBC (4.1-5.4) M/mm3 Hgb (12.0-16.0) gm/dl Hct (35-47) % MCV (78-100) fl MCH (26-32) pg MCHC (32-36) g/dl RDW (11.5-14.0) % Plt Count (150-450) K/mm3 MPV (6-9.5) fl Gran % (36.0-66.0) % Eos # (Auto) (0-0.5) Absolute Lymphs (auto) (1.0-4.6) Absolute Monos (auto) (0.0-1.3) Lymphocytes % (24.0-44.0) % Monocytes % (0.0-12.0) % Eosinophils % (0.00-5.0) % Basophils % (0.0-0.4) % Absolute Granulocytes (1.4-6.9) Basophils # (0-0.4) PT (9.95-12.35) SECONDS INR (0.8-3.0) Puncture Site RIGHT RADIAL pCO2 25 L (35-45) mmHg pO2 44 L* (75-100) mmHg pO2/FiO2 Ratio % Base Excess -6.3 L (-2.0-2.0) O2 Saturation 78.1 L (94-100) g/dF ABG pH 7.44 (7.35-7.45) ABG HCO3 17.0 L (22-28) ABG O2 Sat (Measured) 80.9 L (95-100) % Eliezer Test YES VBG pH (7.32-7.42) VBG pCO2 at Pat Temp (42-55) mm/Hg VBG pO2 at Pat Temp (25-40) mm/Hg VBG HCO3 (22-28) meq/L VBG O2 Sat (Briana) (95-100) VBG Base Excess (-2.0-2.0) VBG Hemoglobin VBG Carboxyhemoglobin (0.0-6.9) % T HGB A-a Gradient 638 a/A Ratio 0.06 Hemoglobin 7.8 L* Carboxyhemoglobin 3.1 (0.0-6.9) % THgb Methemoglobin 0.4 L (1.4-1.5) % POC Potassium (3.5-5.1) Temperature 37.0 C POC O2 Flow Rate 100 % Sodium (137-145) mmol/L Potassium 6.1 H* (3.5-5.1) mmol/L Chloride (98-107) mmol/L Carbon Dioxide (22-30) mmol/L Anion Gap (5-15) MEQ/L BUN (7-17) mg/dL Creatinine (0.52-1.04) mg/dL Estimated GFR ML/MIN Glucose (74-106) mg/dL Lactic Acid (0.4-2.0) Calcium (8.4-10.2) mg/dL Total Bilirubin (0.2-1.3) mg/dL AST (14-36) U/L ALT (0-35) U/L Alkaline Phosphatase (38-126) U/L Serum Total Protein (6.3-8.2) g/dL Albumin (3.5-5.0) g/dL Urine Color YELLOW (YELLOW) Urine Appearance CLEAR (CLEAR) Urine pH 6.0 (5-6) Ur Specific [place] 1.009 (1.005-1.025) Urine Protein >=500 (Negative) Urine Ketones TRACE (NEGATIVE) Urine Blood NEGATIVE (0-5) Vamshi/ul Urine Nitrite NEGATIVE (NEGATIVE) Urine Bilirubin NEGATIVE (NEGATIVE) Urine Urobilinogen NEGATIVE (0-1) mg/dL Ur Leukocyte Esterase NEGATIVE (NEGATIVE) Urine WBC (Auto) 0-2 (0-5) /HPF Urine RBC (Auto) 3-5 (0-2) /HPF U Hyaline Cast (Auto) 0-2 (0-2) /LPF U Epithel Cells (Auto) FEW (FEW) /HPF Urine Bacteria (Auto) RARE (NEGATIVE) /HPF Urine Culture Reflexed NO (NO) Urine Glucose >=500 (NEGATIVE) mg/dL Urine HCG, Qual (Negative) ABO Group O Rh Factor POSITIVE Antibody Screen NEGATIVE (NEGATIVE) Crossmatch (COMPATIBLE) 11/01/18 11/01/18 Range/Units 13:00 13:00 WBC (4.0-10.5) K/mm3 RBC (4.1-5.4) M/mm3 Hgb (12.0-16.0) gm/dl Hct (35-47) % MCV (78-100) fl MCH (26-32) pg MCHC (32-36) g/dl RDW (11.5-14.0) % Plt Count (150-450) K/mm3 MPV (6-9.5) fl Gran % (36.0-66.0) % Eos # (Auto) (0-0.5) Absolute Lymphs (auto) (1.0-4.6) Absolute Monos (auto) (0.0-1.3) Lymphocytes % (24.0-44.0) % Monocytes % (0.0-12.0) % Eosinophils % (0.00-5.0) % Basophils % (0.0-0.4) % Absolute Granulocytes (1.4-6.9) Basophils # (0-0.4) PT 17.1 H (9.95-12.35) SECONDS INR 1.46 (0.8-3.0) Puncture Site pCO2 (35-45) mmHg pO2 (75-100) mmHg pO2/FiO2 Ratio % Base Excess (-2.0-2.0) O2 Saturation (94-100) g/dF ABG pH (7.35-7.45) ABG HCO3 (22-28) ABG O2 Sat (Measured) (95-100) % Eliezer Test VBG pH (7.32-7.42) VBG pCO2 at Pat Temp (42-55) mm/Hg VBG pO2 at Pat Temp (25-40) mm/Hg VBG HCO3 (22-28) meq/L VBG O2 Sat (Briana) (95-100) VBG Base Excess (-2.0-2.0) VBG Hemoglobin VBG Carboxyhemoglobin (0.0-6.9) % T HGB A-a Gradient a/A Ratio Hemoglobin Carboxyhemoglobin (0.0-6.9) % THgb Methemoglobin (1.4-1.5) % POC Potassium (3.5-5.1) Temperature C POC O2 Flow Rate % Sodium 135 L (137-145) mmol/L Potassium 6.2 H* (3.5-5.1) mmol/L Chloride 97 L (98-107) mmol/L Carbon Dioxide 17 L (22-30) mmol/L Anion Gap 27.0 H (5-15) MEQ/L BUN 67 H (7-17) mg/dL Creatinine 2.06 H (0.52-1.04) mg/dL Estimated GFR 29.1 ML/MIN Glucose 493 H (74-106) mg/dL Lactic Acid (0.4-2.0) Calcium 8.1 L (8.4-10.2) mg/dL Total Bilirubin 1.90 H (0.2-1.3) mg/dL AST 196 H (14-36) U/L ALT 47 H (0-35) U/L Alkaline Phosphatase 174 H (38-126) U/L Serum Total Protein 6.1 L (6.3-8.2) g/dL Albumin 3.0 L (3.5-5.0) g/dL Urine Color (YELLOW) Urine Appearance (CLEAR) Urine pH (5-6) Ur Specific [place] (1.005-1.025) Urine Protein (Negative) Urine Ketones (NEGATIVE) Urine Blood (0-5) Vamshi/ul Urine Nitrite (NEGATIVE) Urine Bilirubin (NEGATIVE) Urine Urobilinogen (0-1) mg/dL Ur Leukocyte Esterase (NEGATIVE) Urine WBC (Auto) (0-5) /HPF Urine RBC (Auto) (0-2) /HPF U Hyaline Cast (Auto) (0-2) /LPF U Epithel Cells (Auto) (FEW) /HPF Urine Bacteria (Auto) (NEGATIVE) /HPF Urine Culture Reflexed (NO) Urine Glucose (NEGATIVE) mg/dL Urine HCG, Qual (Negative) ABO Group Rh Factor Antibody Screen (NEGATIVE) Crossmatch (COMPATIBLE) - Progress Progress Note: 11/01/18 13:36 i reviewed pts old labs. on 10/25/18-hgb/hct was 9.1/28(usually hgb 10-11), glucose 333, and bun/cr 43/1.7 11/01/18 21:24 pt suddenly worsened at approx 1415 despite ivf, dopamine renal dose. her bp and oxygenation suddenly dropped. pts present when this occurred. pt was orotracheally intubated at 1432 and concurrently pt went bradycardic. we began aystole algorithm. however, pt did not appear to have a palpable blood pressure and not perfusing so we began cpr at 1435. (see cpr sheet). ngt placed and large amt of [place] blood emptied. cxr confirmed et tube in good position. we repositioned an ngt and more blood emptied from stomach. we continued cpr until 1600. pts , mother and father observed at various stages of code arrest process. they asked us to cease cpr. pt never responded to any intervention. family was present and observed. code arrest called at [address] Gonzales (spoke to dr. gonzales, pts pcp) - Departure Departure Disposition: Clinical Impression: Hypotension, Anemia, GI bleed, Respiratory arrest before cardiac arrest Condition: Critical Care Time: Yes Critical Care Time(excluding separately billable procedures): 75-104 minutes Referrals: GREGORY GONZALES [Primary Care Provider] -
[2018-11-01] MEDS ORDERED: Sodium Chloride 0.9% 1000 ML 1,000 ML IV STA (13:23)
[2018-11-01] MEDS ORDERED: Sodium Chloride 0.9% 1000 ML 1,000 ML ONE ×2 (13:23→14:13)
[2018-11-01 13:32] LABS: A-aADO2 638; ARTERIAL BLD GAS O2 SATURATION 80.9 % (95-100); ARTERIAL BLOOD GAS BASE EXCESS -6.3 (-2.0-2.0); ARTERIAL BLOOD GAS FIO2 100 %; ARTERIAL BLOOD GAS PCO2 25 mmHg (35-45); ARTERIAL BLOOD GAS pH 7.44 (7.35-7.45); CARBOXYHEMOGLOBIN 3.1 % THgb (0.0-6.9); HGB O2 SAT 78.1 g/dF (94-100); Methhemoglobin 0.4 % (1.4-1.5); paO2 pAO1 0.06
[2018-11-01 13:33] LABS: BASOPHIL % 0.4 % (0.0-0.4); Basophil (Absolute #) 0.03 (0-0.4); Eosinophil % 0.1 % (0.00-5.0); Eosinophil (Absolute #) 0.01 (0-0.5); Granulocytes % 85.7 % (36.0-66.0); Hematocrit 25.8 % (35-47); Lymphocyte (Absolute #) 0.71 (1.0-4.6); Lymphocytes % 10.3 % (24.0-44.0); Mean Cell Volume 87.5 fl (78-100); Mean Corpuscular Hemoglobin 27.1 pg (26-32); Mean Platelet Volume 11.3 fl (6-9.5); Monocyte (Absolute #) 0.24 (0.0-1.3); Monocytes % 3.5 % (0.0-12.0); Platelet Count 343 K/mm3 (150-450); Red Blood Count 2.95 M/mm3 (4.1-5.4); Red Cell Distribution Width 14.7 % (11.5-14.0); White Blood Count 6.9 K/mm3 (4.0-10.5)
[2018-11-01 13:33] LABS: ABG POTASSIUM 6.1 (3.5-5.1); ARTERIAL BLOOD GAS PO2 44 mmHg (75-100)
[2018-11-01 13:33] LABS: INR 1.46 (0.8-3.0); PROTIME 17.1 SECONDS (9.95-12.35)
[2018-11-01 13:34] LABS: ABG HEMOGLOBIN 7.8; ABG SITE RIGHT RADIAL; ALLEN TEST OK? YES
[2018-11-01 13:34] LABS: Appearance CLEAR (CLEAR); Bacteria RARE /HPF (NEGATIVE); Bilirubin NEGATIVE (NEGATIVE); Blood NEGATIVE Ery/ul (0-5); Epithelial Cells FEW /HPF (FEW); Glucose >=500 mg/dL (NEGATIVE); Hyaline Casts 0-2 /LPF (0-2); Ketones TRACE (NEGATIVE); Leukocyte Esterase NEGATIVE (NEGATIVE); Nitrite NEGATIVE (NEGATIVE); Protein,Urine Dip >=500 (Negative); Specific Gravity 1.009 (1.005-1.025); Urobilinogen NEGATIVE mg/dL (0-1); WBC 0-2 /HPF (0-5)
[2018-11-01 13:37] LABS: BILIRUBIN,TOTAL 1.9 mg/dL (0.2-1.3); Calcium 8.1 mg/dL (8.4-10.2); Creatinine 1 2.06 mg/dL (0.52-1.04); Total Protein 6.1 g/dL (6.3-8.2)
[2018-11-01 13:44] LABS: Potassium 6.2 mmol/L (3.5-5.1)
[2018-11-01] MEDS ORDERED: Dopamine 400 MG/D5W 250ML PREMIX 250 ML IV PRN (13:44)
[2018-11-01] MEDS ORDERED: Zofran 4 MG/2 ML VIAL IV ONE (13:44)
[2018-11-01] MEDS ORDERED: NovoLIN R IV ONE (13:46)
[2018-11-01] MEDS ORDERED: Lasix 40 MG/4 ML IV ONE (13:47)
[2018-11-01] MEDS ORDERED: Zofran 4 MG/2 ML VIAL ONE (13:48)
[2018-11-01] MEDS ORDERED: Dopamine 400 MG/D5W 250ML PREMIX 250 ML IV ONE (13:48)
[2018-11-01] MEDS ORDERED: Lasix 40 MG/4 ML ONE (13:49)
[2018-11-01 13:57] LABS: ABO TYPING O; Antibody Screen NEGATIVE (NEGATIVE); RH TYPING POSITIVE
[2018-11-01] MEDS ORDERED: NovoLIN R ONE (13:58)
[2018-11-01 14:03] VITALS: BP 83/59; PULSE 55; O2SAT 91
--- NOTE | 2018-11-01 14:55 | XRAY ---
Indication: Cardiac arrest. Intubation. Comparison: There were 2018. Portable chest demonstrates new endotracheal tube tip 2 cm above the henna and new left arm PICC line with the tip projecting over SVC. Also new presumed NG tube folded with its tip directed superiorly and not included in [id number]. Lungs demonstrates again right lung interstitial alveolar opacities with increasing moderate effusion/atelectasis. Left lung clear. Heart is borderline enlarged. Impression: 1. Folded NG tube with tip directed superiorly and not included in the [id number]. Recommend adjustment. 2. Endotracheal tube tip and left arm PICC line in good position. 3. Again right lung interstitial alveolar opacities with worsening effusion/atelectasis.
[2018-11-01 15:50] LABS: Hematocrit 38.9 % (35-47); Hemoglobin 11.9 gm/dl (12.0-16.0)
[2018-11-01] MEDS ORDERED: CALCIUM CHLORIDE 10% 1000 MG ONE (16:00)
[2018-11-01] MEDS ORDERED: EPINEPHRINE ABBOJECT 1 MG ONE (16:00)
[2018-11-01] MEDS ORDERED: ATROPINE SULFATE 1MG SYR ABBOJECT ONE (16:00)
[2018-11-01] MEDS ORDERED: Zemuron 100 MG/10 ML ONE (16:00)
[2018-11-01] MEDS ORDERED: Cordarone 150 MG/3 ML Injection ONE (16:00)
[2018-11-01] MEDS ORDERED: VERSED 5 MG/5 ML ONE (16:00)
[2018-11-01] MEDS ORDERED: SODIUM BICARBONATE 50 MEQ/50 ML ABBOJECT IV ONE (16:00)
[2018-11-01 17:02] LABS: A-aADO2 638; ARTERIAL BLD GAS O2 SATURATION 80.9 % (95-100); ARTERIAL BLOOD GAS BASE EXCESS -6.3 (-2.0-2.0); ARTERIAL BLOOD GAS FIO2 100 %; ARTERIAL BLOOD GAS PCO2 25 mmHg (35-45); ARTERIAL BLOOD GAS pH 7.44 (7.35-7.45); CARBOXYHEMOGLOBIN 3.1 % THgb (0.0-6.9); HGB O2 SAT 78.1 g/dF (94-100); Methhemoglobin 0.4 % (1.4-1.5); paO2 pAO1 0.06
[2018-11-01 17:03] LABS: ABG POTASSIUM 6.1 (3.5-5.1); ARTERIAL BLOOD GAS PO2 44 mmHg (75-100)
[2018-11-01 17:04] LABS: ABG HEMOGLOBIN 7.8; ABG SITE RIGHT RADIAL; ALLEN TEST OK? YES
[2018-11-01 17:06] LABS: VBG BASE EXCESS -10.5 (-2.0-2.0); VBG CARBOXYHEMOGLOBIN 1.6 % T HGB (0.0-6.9); VBG HCO3- 16.8 meq/L (22-28); VBG O2 SATURATION 14.7 (95-100); VBG POTASSIUM 5.9 (3.5-5.1); VBG pH 7.2 (7.32-7.42)
[2018-11-01 17:07] LABS: VBG HEMOGLOBIN 7.9
[2018-11-01 17:08] LABS: VBG BASE EXCESS -16.1 (-2.0-2.0); VBG HCO3- 16.3 meq/L (22-28); VBG O2 SATURATION 25.5 (95-100); VBG POTASSIUM 5.7 (3.5-5.1)
[2018-11-01 17:09] LABS: VBG pH 6.95 (7.32-7.42)
[2018-11-01 17:16] LABS: Lactic Acid 3.4 (0.4-2.0)
[2018-11-01 17:17] LABS: Lactic Acid 5.3 (0.4-2.0)
[2018-11-02] MEDS ORDERED: Lasix 20 MG/2 ML IV ONE (13:49)
== END 2018-11-01 22:33 | disposition expired ==
LOC: ED 13:08
DX: R09.2 Respiratory arrest (principal); I46.9 Cardiac arrest, cause unspecified; I95.9 Hypotension, unspecified; D64.9 Anemia, unspecified; K92.2 Gastrointestinal hemorrhage, unspecified
CPT/HCPCS: 31500; 36415; 36430; 36600; 71045; 80053; 81001; 82375; 82803; 82805; 83605; 84703; 85014; 85018; 85025; 85610; 86850; 86900; 86901; 86922; 87040; 87086; 93005; 94799; 96360; 96361; 96365; 96374; 96375; 99284; P9016; 96372; J0171; J0282; J0461; J1265; J1940; J2250; J2405; A9270-GY